=== PATIENT | female | born 1990 | race Caucasian/White ===

== ENCOUNTER 2016-12-03 19:02 | Emergency (ER) | payer MEDICAID ==
[2016-12-03 19:51] LABS: BILIRUBIN,URINE NEGATIVE (NEGATIVE); PH,URINE 6.5 PH (5.0-7.5)
[2016-12-03 19:53] LABS: HCG UR QUAL NEGATIVE; UA w/ MICROSCOPIC CHARGE YES
[2016-12-03 20:10] LABS: WBC,URINE >25 /HPF (0-5)
[2016-12-03 20:11] LABS: UR CULTURE IF IND NOT INDICATED
[2016-12-03] MEDS ORDERED: SULFAMETH/TRIMETH DS 800/160 MG TABLET PO STA (20:22)
[2016-12-03] MEDS ORDERED: PHENAZOPYRIDINE 100 MG TABLET PO STA (20:22)
[2016-12-03] MEDS ORDERED: PHENAZOPYRIDINE 100 MG TABLET PO ONE (20:31)
[2016-12-03] MEDS ORDERED: SULFAMETH/TRIMETH DS 800/160 MG TABLET PO ONE (20:32)
--- NOTE | 2016-12-03 20:38 | ED Physician Documentation ---
History of Present Illness - Stated complaint Stated Complaint: R SIDE/BACK PX - Chief complaint Chief Complaint: UTI - History obtained from History obtained from: Patient - Additonal information Additional information: Patient is a healthy young 26-year-old female presents with lower urinary symptoms for a couple days. She has frequency urgency hesitancy. She says she believes she might have a little right-sided back pain. She has had nausea without vomiting. There is no fever or chills. She has no constipation or diarrhea. Review of systems: For pertinent positive and negatives in the review of systems please see the history of present illness, otherwise all other systems have been reviewed and are negative. Dragon disclaimer: Parts of this medical record were created using voice recognition technology. Because of the inherent limitations of this system, occasional same sounding word substitutions do occur and persist despite proofreading. Please read the document for context. Review of Systems Constitutional: denies: Fever, Chills GI: reports: Nausea. 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 : None HEENT: None Psych: None Musculoskeletal: None Derm: None - Past Surgical History Past Surgical History: Yes HEENT: Myringotomy (tubes) - Present Medications Home Medications: Ambulatory Orders Medication Instructions Recorded Confirmed Waqar 10/14/15 Azithromycin [Zithromax] 250 mg PO DAILY #6 tablet 01/09/16 Fluconazole [Diflucan] 150 mg PO ONCE #1 tablet 01/09/16 Ondansetron Odt [Zofran] 4 mg TL Q6H PRN #10 tablet 01/09/16 Fluconazole 150 mg PO ONCE #1 tablet 12/03/16 Phenazopyridine HCl [Pyridium] 200 mg PO TID #9 tablet 12/03/16 Sulfamethox/Trimeth 800/160 1 each PO BID #6 tablet 12/03/16 [Bactrim Ds 800/160] - Allergies Allergies/Adverse Reactions: Allergies Allergy/AdvReac Type Severity Reaction Status Date / Time No Known Drug Allergies Allergy Verified 12/03/16 19:11 - Social History Does the pt smoke?: No Smoking Status: Never smoker Does the pt drink ETOH?: Yes Does the pt have substance abuse?: Yes Substance Use and Type: Marijuana - Immunizations Immunizations are current?: Yes - POLST Patient has POLST: No PD ED PE NORMAL - Vitals Vital signs reviewed: Yes - General General: Alert and oriented X 3, No acute distress - Neck Neck: Supple, no meningeal sign - Cardiac Cardiac: RRR - Respiratory Respiratory: No respiratory distress, Clear bilaterally - Abdomen Abdomen: Normal bowel sounds, Soft - Back Back: No CVA TTP - Derm Derm: Normal color, Warm and dry Results - Vitals Vitals: Vital Signs - 24 hr 12/03/16 19:08 Temperature 36.6 C Heart Rate 87 Respiratory 16 Rate Blood Pressure 114/62 O2 Saturation 98 Oxygen O2 Source Room air - Labs Labs: Laboratory Tests 12/03/16 19:35 Urine Color YELLOW Urine Clarity CLOUDY Urine pH 6.5 Ur Specific [place] 1.020 Urine Protein NEGATIVE Urine Glucose (UA) NEGATIVE Urine Ketones NEGATIVE Urine Occult Blood NEGATIVE Urine Nitrite NEGATIVE Urine Bilirubin NEGATIVE Urine Urobilinogen 0.2 (NORMAL) Ur Leukocyte Esterase TRACE H Urine RBC 0-5 Urine WBC >25 H Ur Epithelial Cells See Comments Below Ur Squamous Epith Cells MANY Squamous H Urine Bacteria Few Urine Mucus Marked Strands Ur Microscopic Review INDICATED Urine Culture Comments NOT INDICATED Urine HCG, Qual NEGATIVE PD MEDICAL DECISION MAKING - ED course ED course: Healthy young female with lower urinary tract infection symptoms for a couple days. She looks great on physical examination without CVA tenderness, toxicity , or abdominal tenderness. She will be placed in a short course of Bactrim. Disposition: To home Clinical impression: 1. Acute cystitis Departure - Departure Disposition: Home, Self Care Clinical Impression: Cystitis Condition: Good Instructions: ED UTI Cystitis Female Follow-Up: Anita Flanagan [facility] [Provider Group] Prescriptions: Sulfamethox/Trimeth 800/160 [Bactrim Ds 800/160] 1 each PO BID #6 tablet Fluconazole 150 mg PO ONCE #1 tablet Phenazopyridine HCl [Pyridium] 200 mg PO TID #9 tablet
[2016-12-03 20:49] VITALS: BP 118/74
== END 2016-12-03 20:51 | disposition home or self-care (01) ==
LOC: ED 19:02
DX: N30.00 Acute cystitis without hematuria (principal)
CPT/HCPCS: 81001; 81025; 99283; A9270; 81003; 87086

== ENCOUNTER 2017-01-17 05:12 | Emergency (ER) | payer MEDICAID ==
[2017-01-17] MEDS ORDERED: FAMOTIDINE 20 MG/2 ML VIAL IVP STA (05:25)
[2017-01-17] MEDS ORDERED: ONDANSETRON 4 MG/2 ML VIAL IVP STA (05:25)
[2017-01-17] MEDS ORDERED: SODIUM CHLORIDE 0.9% 1,000 ML IV ONE (05:25)
[2017-01-17] MEDS ORDERED: FAMOTIDINE 20 MG/2 ML VIAL ONE (05:32)
[2017-01-17] MEDS ORDERED: ONDANSETRON 4 MG/2 ML VIAL ONE (05:32)
--- NOTE | 2017-01-17 05:33 | ED Physician Documentation ---
PD HPI NVD - Stated complaint Stated Complaint: ABDOMINAL PAIN - Chief complaint Chief Complaint: Abd Pain - History obtained from History obtained from: Patient - History of Present Illness Timing - onset: Today Timing - details: Abrupt onset, Still present Associated symptoms: Abdominal pain. No: Fever, Chest pain, Hematemesis, Hematochezia Contributing factors: Alcohol use. No: Sick contact, Bad food Similar symptoms before: Has not had sx before Recently seen: Not recently seen - Additonal information Additional information: Patient is a 26 year old female with no significant past medical history who is presenting to the emergency department for nausea, vomiting and abdominal pain. patient states that she drank three glasses of vodka and orange juice. Patient also reports that she smoked marijuana. patient states she has had multiple episodes of vomiting and now she has stomach pains. Review of Systems Constitutional: denies: Fever, Chills Eyes: denies: Decreased vision Ears: denies: Ear pain, Drainage/discharge Nose: denies: Rhinorrhea / runny nose, Congestion Throat: denies: Dental pain / toothache Cardiac: denies: Chest pain / pressure, Palpitations Respiratory: denies: Dyspnea, Cough GI: reports: Abdominal Pain, Nausea, Vomiting. 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 : None HEENT: None Psych: None Musculoskeletal: None Derm: None - Past Surgical History Past Surgical History: Yes HEENT: Myringotomy (tubes) - Present Medications Home Medications: Ambulatory Orders Medication Instructions Recorded Confirmed Waqar 10/14/15 Azithromycin [Zithromax] 250 mg PO DAILY #6 tablet 01/09/16 Fluconazole [Diflucan] 150 mg PO ONCE #1 tablet 01/09/16 Ondansetron Odt [Zofran] 4 mg TL Q6H PRN #10 tablet 01/09/16 Fluconazole 150 mg PO ONCE #1 tablet 12/03/16 Phenazopyridine HCl [Pyridium] 200 mg PO TID #9 tablet 12/03/16 Sulfamethox/Trimeth 800/160 1 each PO BID #6 tablet 12/03/16 [Bactrim Ds 800/160] Dicyclomine [Bentyl] 10 mg PO QID #10 capsule 01/17/17 Ondansetron [Zofran Odt] 8 mg PO Q6H PRN #20 tab.rapdis 01/17/17 - Allergies Allergies/Adverse Reactions: Allergies Allergy/AdvReac Type Severity Reaction Status Date / Time No Known Drug Allergies Allergy Verified 01/17/17 05:22 - Social History Does the pt smoke?: No Smoking Status: Never smoker Does the pt drink ETOH?: Yes Does the pt have substance abuse?: Yes - Immunizations Immunizations are current?: Yes - POLST Patient has POLST: No PD ED PE NORMAL - Vitals Vital signs reviewed: Yes - General General: Alert and oriented X 3, Well developed/nourished - HEENT HEENT: Atraumatic, PERRL - Neck Neck: Supple, no meningeal sign - Cardiac Cardiac: RRR, No murmur - Respiratory Respiratory: No respiratory distress, Clear bilaterally - Abdomen Abdomen: Soft - Derm Derm: Normal color, Warm and dry, No rash - Extremities Extremities: No deformity, No edema - Neuro Neuro: Alert and oriented X 3, No motor deficit, No sensory deficit - Psych Psych: Normal mood, Normal affect PD ED PE EXPANDED - General General: Alert, Other (wretching) - HEENT HEENT: Dry mucous membranes - Abdomen Abdomen: Tender to palpation, Epigastric, Generalized/diffuse. No: Rebound, Guarding Results - Vitals Vitals: Vital Signs - 24 hr 01/17/17 05:19 Temperature 36.4 C L Heart Rate 75 Respiratory 22 Rate Blood Pressure 122/74 O2 Saturation 98 Oxygen O2 Source Room air PD MEDICAL DECISION MAKING - ED course Complexity details: reviewed old records, reviewed results, re-evaluated patient , considered differential, d/w patient ED course: Patient was seen and examined at bedside. IV access was gained and patient was treated with zofran and IV fluids. Patient continued to wretch and phenagren was added. Patient tolerated the treatment well. Patient had minimal dry heaving but no vomiting. Patient required no further inpatient work up and was stable for discharge home with her friend. Departure - Departure Disposition: 01 Home, Self Care Clinical Impression: Gastritis Condition: Good Instructions: Nausea Vomit Control Follow-Up: primary,care provider [Other] - As Needed Prescriptions: Dicyclomine [Bentyl] 10 mg PO QID #10 capsule Ondansetron [Zofran Odt] 8 mg PO Q6H PRN #20 tab.rapdis PRN Reason: Nausea / Vomiting Comments: It is difficult to say if your symptoms are secondary to the alcohol and marijuana, or from food poisoning. Either way the treatment is just symptom control. You will need to take the zofran for vomiting and stay hydrated. You can take tylenol, pepcid and bentyl as needed for pain. You should follow up with your doctor if your symptoms persist for more than a few days. You may return to the emergency department if necessary for new, worsening or uncontrollable symptoms.
[2017-01-17] MEDS ORDERED: PROMETHAZINE INJ 25 MG in SODIUM CHLORIDE 0.9% 50 ML IV STA (06:06)
[2017-01-17] MEDS ORDERED: PROMETHAZINE 25 MG/1 ML VIAL ONE (06:18)
[2017-01-17] MEDS ORDERED: ONDANSETRON ODT 4 MG Prepack 2 TL PRN (06:32)
[2017-01-17] MEDS ORDERED: ONDANSETRON ODT 4 MG Prepack 2 TL ONE (06:39)
[2017-01-17 06:49] VITALS: BP 110/61
== END 2017-01-17 06:53 | disposition home or self-care (01) ==
LOC: ED 05:12
DX: K29.70 Gastritis, unspecified, without bleeding (principal)
CPT/HCPCS: 96361; 96365; 96375; 99283; J7040

== ENCOUNTER 2017-07-17 11:59 | Emergency (ER) | payer MEDICAID ==
[2017-07-17] MEDS ORDERED: LIDOCAINE 1%-EPI 1:100000 20 ML MDV SUBQ STA (12:21)
[2017-07-17] MEDS ORDERED: TETANUS/DIPHTHERIA/PERTUSSIS 0.5 ML SYRINGE IM ONE (12:31)
--- NOTE | 2017-07-17 12:34 | ED Physician Documentation ---
PD HPI UPPER EXT INJURY - Stated complaint Stated Complaint: GLASS IN R HAND - Chief complaint Chief Complaint: Ext Problem - History obtained from History obtained from: Patient - History of Present Illness Location: Other (Ambidextrous young woman who is not up-to-date on tetanus who cut herself on a broken glass window at home just prior to arrival, pain is minimal but she wonders if there might be Retained foreign body.) Review of Systems Constitutional: reports: Reviewed and negative Ears: reports: Reviewed and negative Throat: reports: Reviewed and negative PD PAST MEDICAL HISTORY - Past Medical History Past Medical History: Yes Cardiovascular: None Respiratory: None Neuro: None, Headache/migraine Endocrine/Autoimmune: None GI: None 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 : None HEENT: None Psych: None Musculoskeletal: None Derm: None - Past Surgical History Past Surgical History: Yes HEENT: Myringotomy (tubes) - Present Medications Home Medications: Ambulatory Orders Medication Instructions Recorded Confirmed Merena 10/14/15 Azithromycin [Zithromax] 250 mg PO DAILY #6 tablet 01/09/16 Fluconazole [Diflucan] 150 mg PO ONCE #1 tablet 01/09/16 Ondansetron Odt [Zofran] 4 mg TL Q6H PRN #10 tablet 01/09/16 Fluconazole 150 mg PO ONCE #1 tablet 12/03/16 Phenazopyridine HCl [Pyridium] 200 mg PO TID #9 tablet 12/03/16 Sulfamethox/Trimeth 800/160 1 each PO BID #6 tablet 12/03/16 [Bactrim Ds 800/160] Dicyclomine [Bentyl] 10 mg PO QID #10 capsule 01/17/17 Ondansetron [Zofran Odt] 8 mg PO Q6H PRN #20 tab.rapdis 01/17/17 - Allergies Allergies/Adverse Reactions: Allergies Allergy/AdvReac Type Severity Reaction Status Date / Time No Known Drug Allergies Allergy Verified 07/17/17 12:10 - Social History Does the pt smoke?: No Smoking Status: Never smoker Does the pt drink ETOH?: Yes Does the pt have substance abuse?: Yes - Immunizations Immunizations are current?: No Immunizations: TDAP >10years/unknown - POLST Patient has POLST: No PD ED PE NORMAL - Vitals Vital signs reviewed: Yes - General General: Alert and oriented X 3, No acute distress - Neuro Neuro: Alert and oriented X 3, Normal speech - Psych Psych: Normal mood, Normal affect PD ED PE EXPANDED - Extremities VICENTE UE/Hands Visual: 1 - laceration (2 very shallow lacerations, too shallow to hide foreign body. They were just through the dermis. They were thoroughly cleansed and the larger of the 2 was closed with a Steri-Strip.) Results - Vitals Vitals: Vital Signs - 24 hr 07/17/17 12:03 Temperature 36.8 C Heart Rate 70 Respiratory 18 Rate Blood Pressure 121/73 O2 Saturation 100 Oxygen O2 Source Room air Departure - Departure Disposition: 01 Home, Self Care Clinical Impression: Laceration of right hand Qualifiers: Encounter type: initial encounter Foreign body presence: without foreign body Qualified Code(s): S61.411A - Laceration without foreign body of right hand, initial encounter Condition: Good Record reviewed to determine appropriate education?: Yes Instructions: ED Laceration Hand
[2017-07-17 12:55] VITALS: BP 122/68
== END 2017-07-17 13:00 | disposition home or self-care (01) ==
LOC: ED 11:59
DX: S61.411A Laceration without foreign body of right hand, initial encounter (principal); W25.XXXA Contact with sharp glass, initial encounter; Y92.009 Unspecified place in unspecified non-institutional (private) residence as the place of occurrence of the external cause; Z23 Encounter for immunization
CPT/HCPCS: 90471; 99283

== ENCOUNTER 2017-08-14 12:58 | Emergency (ER) | payer MEDICAID ==
--- NOTE | 2017-08-14 13:36 | ED Physician Documentation ---
History of Present Illness - Stated complaint Stated Complaint: FEMALE - Chief complaint Chief Complaint: General - History obtained from History obtained from: Patient - History of Present Illness Timing: How many days ago (2) Pain level max: 3 Pain level now: 2 Improved by: nothing Worsened by: urination - Additonal information Additional information: 26 year old female with a new sexual partner, did not use condoms and now has dysuria. No fevers. No vomiting. No discharge. no lesions. Review of Systems Ten Systems: 10 systems reviewed and negative Constitutional: denies: Fever, Chills Nose: denies: Rhinorrhea / runny nose, Congestion Throat: denies: Sore throat Respiratory: denies: Cough GI: denies: Nausea, Vomiting, Diarrhea : reports: Dysuria, Frequency, Hesitancy. 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 HEENT: None Psych: None Musculoskeletal: None Derm: None - Past Surgical History Past Surgical History: Yes HEENT: Myringotomy (tubes) - Present Medications Home Medications: Ambulatory Orders Medication Instructions Recorded Confirmed Sarahcristofer 10/14/15 Metronidazole [Flagyl] 500 mg PO BID #14 tablet 08/14/17 - Allergies Allergies/Adverse Reactions: Allergies Allergy/AdvReac Type Severity Reaction Status Date / Time No Known Drug Allergies Allergy Verified 08/14/17 13:06 - Social History Does the pt smoke?: No Smoking Status: Never smoker Does the pt drink ETOH?: Yes Does the pt have substance abuse?: Yes - Immunizations Immunizations are current?: No Immunizations: TDAP >10years/unknown - POLST Patient has POLST: No PD ED PE NORMAL - Vitals Vital signs reviewed: Yes - General General: Alert and oriented X 3, No acute distress - HEENT HEENT: Moist mucous membranes - Neck Neck: Supple, no meningeal sign - Cardiac Cardiac: RRR, Strong equal pulses - Respiratory Respiratory: No respiratory distress, Clear bilaterally - Abdomen Abdomen: Soft, Non tender, Non distended - Female Female : Marketing Ambassador present (Lucie JOHNSON), Other (normal external exam. No CMT. No adnexal masses or tenderness. Scant clear discharge. ) - Back Back: No spinal TTP - Derm Derm: Warm and dry - Neuro Neuro: Alert and oriented X 3 - Psych Psych: Normal mood, Normal affect Results - Vitals Vitals: Vital Signs - 24 hr 08/14/17 08/14/17 13:04 14:25 Temperature 37.0 C 36.6 C Heart Rate 77 72 Respiratory 16 14 Rate Blood Pressure 115/67 136/74 H O2 Saturation 99 98 Oxygen O2 Source Room air - Labs Labs: Microbiology 08/14/17 13:36 VICTOR MANUEL Preparation - Final Other - Vaginal 08/14/17 13:36 Wet Prep - Final Vaginal Laboratory Tests 08/14/17 13:35 Urine Color YELLOW Urine Clarity CLEAR Urine pH 6.5 Ur Specific [place] 1.020 Urine Protein NEGATIVE Urine Glucose (UA) NEGATIVE Urine Ketones NEGATIVE Urine Occult Blood TRACE-LYSE Urine Nitrite NEGATIVE Urine Bilirubin NEGATIVE Urine Urobilinogen 0.2 (NORMAL) Ur Leukocyte Esterase NEGATIVE Ur Microscopic Review NOT INDICATED Urine Culture Comments NOT INDICATED Urine HCG, Qual NEGATIVE PD MEDICAL DECISION MAKING - ED course Complexity details: reviewed results, re-evaluated patient, considered differential, d/w patient ED course: Patient is a 26-year-old female who presents to the emergency department with what appears to be bacterial vaginitis. Will place on Flagyl for this. She is well-appearing, nontoxic. Afebrile. No evidence of UTI. Gonorrhea and Chlamydia testing was sent. Counseled to use condoms for sexual activity. Counseled to follow-up with her doctor for further STD testing. Patient counseled regarding signs and symptoms for which I believe and urgent re- evaluation would be necessary. Patient with good understanding of and agreement to plan and is comfortable going home at this time This document was made in part using voice recognition software. While efforts are made to proofread this document, sound alike and grammatical errors may occur. Departure - Departure Disposition: 01 Home, Self Care Clinical Impression: Bacterial vaginitis Condition: Good Instructions: ED Vaginosis Bacterial Follow-Up: CECILY JUAREZ [Primary Care Provider] - Within 1 week Prescriptions: Metronidazole [Flagyl] 500 mg PO BID #14 tablet Comments: You appear to have bacterial vaginitis today on your lab testing. Take the flagyl until gone. Return if you worsen. Discharge Date/Time: 08/14/17 14:26
[2017-08-14 13:42] LABS: BILIRUBIN,URINE NEGATIVE (NEGATIVE); GLUCOSE, URINE (UA) NEGATIVE (NEGATIVE); KETONES,URINE (UA) NEGATIVE (NEGATIVE); LEUKOCYTE ESTERASE, URINE NEGATIVE (NEGATIVE); NITRITE,URINE NEGATIVE (NEGATIVE); OCCULT BLOOD,URINE TRACE-LYSE (NEGATIVE); PH,URINE 6.5 PH (5.0-7.5); PROTEIN,URINE NEGATIVE (NEGATIVE); UROBILINOGEN,URINE 0.2 (NORMAL) E.U./dL (NORMAL)
[2017-08-14 13:46] LABS: CLARITY,URINE CLEAR (CLEAR); HCG UR QUAL NEGATIVE
[2017-08-14 14:26] VITALS: BP 136/74
== END 2017-08-14 14:26 | disposition home or self-care (01) ==
LOC: ED 12:58
DX: N76.0 Acute vaginitis (principal)
CPT/HCPCS: 81001; 81003; 81025; 87086; 87210; 87220; 87491; 87591; 99283

== ENCOUNTER 2017-08-31 14:51 | Emergency (ER) | payer MEDICAID ==
[2017-08-31 15:14] VITALS: BP 135/74
[2017-08-31 15:34] LABS: BILIRUBIN,URINE NEGATIVE (NEGATIVE); GLUCOSE, URINE (UA) NEGATIVE (NEGATIVE); KETONES,URINE (UA) NEGATIVE (NEGATIVE); LEUKOCYTE ESTERASE, URINE SMALL (NEGATIVE); NITRITE,URINE POSITIVE (NEGATIVE); OCCULT BLOOD,URINE LARGE (NEGATIVE); PH,URINE 5.5 PH (5.0-7.5); PROTEIN,URINE TRACE mg/dL (NEGATIVE); UROBILINOGEN,URINE 0.2 (NORMAL) E.U./dL (NORMAL)
[2017-08-31 15:36] LABS: CLARITY,URINE CLEAR (CLEAR); HCG UR QUAL NEGATIVE
[2017-08-31 15:43] LABS: BACTERIA,URINE Moderate /HPF (None Seen); SQUAMOUS EPITHELIAL CELL,UR FEW Squamous (<= Few)
[2017-08-31 15:56] LABS: BASOPHILS # (AUTO) 0.1 10^3/uL (0.0-0.1); EOSINOPHILS # (AUTO) 0.1 10^3/uL (0.0-0.7); HGB - HEMOGLOBIN 13.1 g/dL (12.0-16.0); LYMPHOCYTES # (AUTO) 1.7 10^3/uL (1.5-3.5); LYMPHOCYTES % (AUTO) 18.1 %; MEAN CORPUSCULAR HGB CONC 32.9 g/dL (32.0-36.0); MEAN CORPUSCULAR VOLUME 91.1 fL (81.0-99.0); MEAN PLATELET VOLUME 9.4 fL (7.9-10.8); MONOCYTES # (AUTO) 0.8 10^3/uL (0.0-1.0); MONOCYTES % (AUTO) 8.4 %; NEUTROPHILS # (AUTO) 6.5 10^3/uL (1.5-6.6); NEUTROPHILS % (AUTO) 71.5 %; PLT - PLATELET COUNT 269 10^3/uL (130-450); RED BLOOD COUNT 4.36 10^6/uL (4.20-5.40); RED CELL DISTRIBUTION WIDTH 13.3 % (12.0-15.0); WHITE BLOOD COUNT 9.1 x10^3/uL (4.8-10.8)
--- NOTE | 2017-08-31 16:01 | ED Physician Documentation ---
PD HPI FEMALE - Stated complaint Stated Complaint: FEMALE - Chief complaint Chief Complaint: General - History obtained from History obtained from: Patient - History of Present Illness Timing - onset: How many days ago (3) Timing - duration: Days (3) Timing - details: Gradual onset, Still present Associated symptoms: Dysuria, Urinary frequency Contributing factors: No: Similar symptoms before: Diagnosis (UTI) Recently seen: Not recently seen - Additional information Additional information: Previously healthy 26-year-old female is developed urinary urgency frequency and dysuria as well as some low back pain over the past 3 days. She did take some Azo this is helped a little bit but does not help with the burning. She has had urinary tract infection previously and she feels that likely what she has again today. 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 HEENT: None Psych: None Musculoskeletal: None Derm: None - Past Surgical History Past Surgical History: Yes HEENT: Myringotomy (tubes) - Present Medications Home Medications: Ambulatory Orders Medication Instructions Recorded Confirmed Waqar 10/14/15 Metronidazole [Flagyl] 500 mg PO BID #14 tablet 08/14/17 Fluconazole [Diflucan] 150 mg PO ONCE #1 tablet 08/31/17 Sulfamethoxazole/Trimethoprim 1 each PO BID #10 tablet 08/31/17 [Sulfamethoxazole-Tmp Ds Tablet] - Allergies Allergies/Adverse Reactions: Allergies Allergy/AdvReac Type Severity Reaction Status Date / Time No Known Drug Allergies Allergy Verified 08/31/17 15:14 - Social History Does the pt smoke?: No Smoking Status: Never smoker Does the pt drink ETOH?: Yes Does the pt have substance abuse?: Yes - Immunizations Immunizations are current?: No Immunizations: TDAP >10years/unknown - POLST Patient has POLST: No PD ED PE NORMAL - Vitals Vital signs reviewed: Yes (normal ) - General General: Alert and oriented X 3, No acute distress, Well developed/nourished - HEENT HEENT: Atraumatic, PERRL, EOMI - Respiratory Respiratory: No respiratory distress - Back Back: No CVA TTP, No spinal TTP, Other (tenderness to the lower lumbar paraspinous muscles bilateraly ) - Derm Derm: Normal color, Warm and dry, No rash - Extremities Extremities: No deformity, No edema - Neuro Neuro: No motor deficit, No sensory deficit Eye Opening: Spontaneous Motor: Obeys Commands Verbal: Oriented GCS Score: 15 - Psych Psych: Normal mood, Normal affect Results - Vitals Vitals: Vital Signs - 24 hr 08/31/17 15:11 Temperature 37.4 C Heart Rate 80 Respiratory 17 Rate Blood Pressure 135/74 H O2 Saturation 100 Oxygen O2 Source Room air - Labs Labs: Laboratory Tests 08/31/17 08/31/17 15:28 15:28 Urine Color YELLOW Urine Clarity CLEAR Urine pH 5.5 Ur Specific [place] 1.010 1.010 Urine Protein TRACE Urine Glucose (UA) NEGATIVE Urine Ketones NEGATIVE Urine Occult Blood LARGE H Urine Nitrite POSITIVE H Urine Bilirubin NEGATIVE Urine Urobilinogen 0.2 (NORMAL) Ur Leukocyte Esterase SMALL H Urine RBC 6-10 H Urine WBC >25 H Ur Squamous Epith Cells FEW Squamous Urine Bacteria Moderate H Ur Microscopic Review INDICATED Urine Culture Comments INDICATED Urine HCG, Qual NEGATIVE PD MEDICAL DECISION MAKING - ED course Complexity details: considered differential, d/w patient ED course: 26 y/o female with a UTI Departure - Departure Disposition: 01 Home, Self Care Clinical Impression: Urinary tract infection Qualifiers: Urinary tract infection type: acute cystitis Hematuria presence: with hematuria Qualified Code(s): N30.01 - Acute cystitis with hematuria Condition: Stable Instructions: ED UTI Cystitis Female Follow-Up: CECILY JUAREZ [Primary Care Provider] - Prescriptions: Fluconazole [Diflucan] 150 mg PO ONCE #1 tablet Sulfamethoxazole/Trimethoprim [Sulfamethoxazole-Tmp Ds Tablet] 1 each PO BID # 10 tablet
[2017-08-31 16:10] LABS: ALBUMIN 4.8 g/dL (3.2-5.5); ALBUMIN/GLOBULIN RATIO 1.6 (1.0-2.2); BILIRUBIN,TOTAL 0.6 mg/dL (0.2-1.0); CALCIUM 9.3 mg/dL (8.5-10.3); CREATININE 0.5 mg/dL (0.4-1.0); TOTAL PROTEIN 7.8 g/dL (6.7-8.2)
== END 2017-08-31 16:07 | disposition home or self-care (01) ==
LOC: ED 14:51
DX: N30.01 Acute cystitis with hematuria (principal)
CPT/HCPCS: 36415; 80053; 81001; 81003; 81025; 83690; 85025; 87077; 87086; 87181; 99283

== ENCOUNTER 2017-11-14 14:03 | Emergency (ER) | payer MEDICAID ==
--- NOTE | 2017-11-14 14:51 | ED Physician Documentation ---
History of Present Illness - Stated complaint Stated Complaint: RT SIDE EAR DISCOMFORT - Chief complaint Chief Complaint: Heent - History obtained from History obtained from: Patient - History of Present Illness Timing: Yesterday Pain level max: 3 Pain level now: 3 Improved by: nothing Worsened by: nothing - Additonal information Additional information: Patient is a 27-year-old female who presents to the emergency department with right ear pain for the past several days. She states that yesterday there was whitish drainage from the ear and she is not hearing as well out of the right side. Has had recurrent ear infections on that side in the past. No fevers. No rhinorrhea or congestion. No coughing. No sore throat. Denies any possibility of . 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 - Past Surgical History Past Surgical History: Yes HEENT: Myringotomy (tubes) - Present Medications Home Medications: Ambulatory Orders Medication Instructions Recorded Confirmed Waqar 10/14/15 Metronidazole [Flagyl] 500 mg PO BID #14 tablet 08/14/17 Fluconazole [Diflucan] 150 mg PO ONCE #1 tablet 08/31/17 Sulfamethoxazole/Trimethoprim 1 each PO BID #10 tablet 08/31/17 [Sulfamethoxazole-Tmp Ds Tablet] Azithromycin [Zithromax] 0 mg PO DAILY #6 tablet 11/14/17 Fluconazole [Diflucan] 150 mg PO ONCE #1 tablet 11/14/17 - Allergies Allergies/Adverse Reactions: Allergies Allergy/AdvReac Type Severity Reaction Status Date / Time No Known Drug Allergies Allergy Verified 11/14/17 14:27 - Social History Does the pt smoke?: No Smoking Status: Never smoker Does the pt drink ETOH?: Yes Does the pt have substance abuse?: Yes - Immunizations Immunizations are current?: No Immunizations: TDAP >10years/unknown - POLST Patient has POLST: No PD ED PE NORMAL - Vitals Vital signs reviewed: Yes - General General: Alert and oriented X 3, No acute distress - HEENT HEENT: Moist mucous membranes, Pharynx benign, Other (L ear and TM normal. R TM Is erythematous, bulging with fluid present behind the eardrum. Unable to visualize the base of the eardrum fully. There could be a perforation behind the wax.) - Neck Neck: Supple, no meningeal sign - Derm Derm: Warm and dry - Neuro Neuro: Alert and oriented X 3 Results - Vitals Vitals: Vital Signs - 24 hr 11/14/17 11/14/17 14:21 15:03 Temperature 37.1 C 37.4 C Heart Rate 76 68 Respiratory 18 16 Rate Blood Pressure 125/73 122/72 O2 Saturation 99 99 Oxygen O2 Source Room air PD MEDICAL DECISION MAKING - ED course Complexity details: considered differential, d/w patient ED course: Patient is a 27-year-old female with a right-sided acute otitis media. Will place on antibiotics for this. She is well-appearing, nontoxic. Afebrile. Discussed with the patient that there could be a perforation on the lower portion of the ear that we are unable to fully visualize because of the wax in her ear. Will have her reexamined after the infection is cleared. Patient counseled regarding signs and symptoms for which I believe and urgent re- evaluation would be necessary. Patient with good understanding of and agreement to plan and is comfortable going home at this time This document was made in part using voice recognition software. While efforts are made to proofread this document, sound alike and grammatical errors may occur. - Sepsis Event Vital Signs: Vital Signs - 24 hr 11/14/17 11/14/17 14:21 15:03 Temperature 37.1 C 37.4 C Heart Rate 76 68 Respiratory 18 16 Rate Blood Pressure 125/73 122/72 O2 Saturation 99 99 Oxygen O2 Source Room air Departure - Departure Disposition: 01 Home, Self Care Clinical Impression: Otitis media Qualifiers: Otitis media type: suppurative Chronicity: acute Laterality: right Recurrence: not specified as recurrent Spontaneous tympanic membrane rupture: without spontaneous rupture Qualified Code(s): H66.001 - Acute suppurative otitis media without spontaneous rupture of ear drum, right ear Instructions: ED Otitis Media Acute Adult Follow-Up: CECILY JUAREZ [Primary Care Provider] - Within 1 week Prescriptions: Azithromycin [Zithromax] 0 mg PO DAILY #6 tablet Fluconazole [Diflucan] 150 mg PO ONCE #1 tablet Comments: Take all antibiotics until gone. Return if you worsen. Discharge Date/Time: 11/14/17 15:03
[2017-11-14 15:04] VITALS: BP 122/72
== END 2017-11-14 15:03 | disposition home or self-care (01) ==
LOC: ED 14:03
DX: H66.001 Acute suppurative otitis media without spontaneous rupture of ear drum, right ear (principal)
CPT/HCPCS: 99283

== ENCOUNTER 2017-12-05 13:05 | Emergency (ER) | payer MEDICAID ==
[2017-12-05 13:10] VITALS: BP 113/69
[2017-12-05] MEDS ORDERED: DEXAMETHASONE 10 MG/ML VIAL PO STA (13:23)
--- NOTE | 2017-12-05 13:26 | ED Physician Documentation ---
PD HPI URI - Stated complaint Stated Complaint: COUGH/VOMITING/DIARRHEA - Chief complaint Chief Complaint: Abd Pain - History obtained from History obtained from: Patient - History of Present Illness Timing - onset: How many days ago (4) Timing duration: Days (4) Timing details: Gradual onset, Still present Associated symptoms: Nasal congestion, Rhinorrhea, Sinus pain, Sore throat, Dry cough, Dyspnea Contributing factors: Sick contact Improves by: Rest, Medication Worsened by: Activity Similar symptoms before: Diagnosis (bronchitis) Recently seen: Emergency Dept - Additional information Additional information: 27-year-old female who has recently been treated for otitis media with azithromycin has developed a cough and congestion with wheezing. She feels that the prior treatment seem to work only part way. This was about 3 weeks ago. She has had a inhaler previously but has not used one in more than a year. 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 : None HEENT: Other Psych: None Musculoskeletal: None Derm: None, Eczema, Psoriasis Other Past Medical History: ears- vertigo, prone to ear infections, ringing - Past Surgical History Past Surgical History: Yes HEENT: Myringotomy (tubes) - Present Medications Home Medications: Ambulatory Orders Medication Instructions Recorded Confirmed Albuterol Sulf [Ventolin Hfa 1 - 2 puffs INH Q4HR PRN #1 inhaler 12/05/17 Inhaler] Amox/Clav 875/125 [Augmentin] 1 each PO Q12H #20 tablet 12/05/17 Levonorgestrel [Mirena] 1 each IY 12/05/17 - Allergies Allergies/Adverse Reactions: Allergies Allergy/AdvReac Type Severity Reaction Status Date / Time No Known Drug Allergies Allergy Verified 12/05/17 13:10 - Social History Does the pt smoke?: No Smoking Status: Never smoker Does the pt drink ETOH?: Yes Does the pt have substance abuse?: Yes - Immunizations Immunizations are current?: No Immunizations: TDAP >10years/unknown - POLST Patient has POLST: No PD ED PE NORMAL - Vitals Vital signs reviewed: Yes (normal ) - General General: Alert and oriented X 3, No acute distress, Well developed/nourished - HEENT HEENT: Atraumatic, PERRL, EOMI, Other (both TM's are inflamed with indistinct landmarks. ) - Neck Neck: Supple, no meningeal sign, No bony TTP - Cardiac Cardiac: RRR, No murmur - Respiratory Respiratory: No respiratory distress, Other (diminished breath sounds with focal wheeze in the right upper lung. 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, No motor deficit, No sensory deficit, Normal speech Eye Opening: Spontaneous Motor: Obeys Commands Verbal: Oriented GCS Score: 15 - Psych Psych: Normal mood, Normal affect Results - Vitals Vitals: Vital Signs - 24 hr 12/05/17 12/05/17 13:07 13:52 Temperature 36.9 C 36.9 C Heart Rate 90 90 Respiratory 18 18 Rate Blood Pressure 113/69 113/69 O2 Saturation 100 100 Oxygen O2 Source Room air PD MEDICAL DECISION MAKING - ED course Complexity details: reviewed old records, considered differential, d/w patient ED course: 27-year-old female with cough congestion and wheezing has wheezing on exam she has otitis on exam. She is administered dexamethasone 10 mg orally she has used an inhaler previously we will prescribe another inhaler and we will change her antibiotic to Augmentin. - Sepsis Event Vital Signs: Vital Signs - 24 hr 12/05/17 12/05/17 13:07 13:52 Temperature 36.9 C 36.9 C Heart Rate 90 90 Respiratory 18 18 Rate Blood Pressure 113/69 113/69 O2 Saturation 100 100 Oxygen O2 Source Room air Departure - Departure Disposition: 01 Home, Self Care Clinical Impression: Otitis media Qualifiers: Otitis media type: suppurative Chronicity: acute Laterality: bilateral Recurrence: not specified as recurrent Spontaneous tympanic membrane rupture: without spontaneous rupture Qualified Code(s): H66.003 - Acute suppurative otitis media without spontaneous rupture of ear drum, bilateral Asthmatic bronchitis Qualifiers: Asthma severity: mild Asthma persistence: intermittent Asthma complication type : with acute exacerbation Qualified Code(s): J45.21 - Mild intermittent asthma with (acute) exacerbation Condition: Stable Instructions: ED Bronchitis Asthmatic, ED Otitis Media Acute Adult Follow-Up: CECILY JUAREZ [Primary Care Provider] - Prescriptions: Albuterol Sulf [Ventolin Hfa Inhaler] 1 - 2 puffs INH Q4HR PRN #1 inhaler PRN Reason: Shortness Of Air/Wheezing Amox/Clav 875/125 [Augmentin] 1 each PO Q12H #20 tablet Forms: Activity restrictions Discharge Date/Time: 12/05/17 13:52
== END 2017-12-05 13:52 | disposition home or self-care (01) ==
LOC: ED 13:05
DX: H66.003 Acute suppurative otitis media without spontaneous rupture of ear drum, bilateral (principal); J45.21 Mild intermittent asthma with (acute) exacerbation
CPT/HCPCS: 99283

== ENCOUNTER 2018-03-02 20:01 | Emergency (ER) | payer MEDICAID ==
[2018-03-02 20:09] VITALS: BP 118/52
== END 2018-03-02 21:08 | disposition left against medical advice (07) ==
LOC: ED 20:01
DX: Z53.21 Procedure and treatment not carried out due to patient leaving prior to being seen by health care provider (principal)

== ENCOUNTER 2018-05-06 21:44 | Outpatient (CLI) | payer MEDICAID | END 2018-05-06 21:45 | disposition home or self-care (01) | LOC: DI 21:44 | PROVIDERS: ATTEND Internal Medicine | DX: N63.20 Unspecified lump in the left breast, unspecified quadrant (principal); Z53.9 Procedure and treatment not carried out, unspecified reason ==

== ENCOUNTER 2018-05-20 17:19 | Emergency (ER) | payer MEDICAID ==
[2018-05-20] MEDS ORDERED: SODIUM CHLORIDE 0.9% 1,000 ML IV ONE ×2 (17:37)
[2018-05-20] MEDS ORDERED: ONDANSETRON 4 MG/2 ML VIAL IVP STA (17:37)
--- NOTE | 2018-05-20 17:41 | ED Physician Documentation ---
PD HPI NVD - Stated complaint Stated Complaint: DRY HEAVING - Chief complaint Chief Complaint: Abd Pain - History obtained from History obtained from: Patient - History of Present Illness Timing - onset: Today Timing - duration: Days (1) Timing - details: Abrupt onset Pain level max: 7 Pain level now: 5 Associated symptoms: Abdominal pain (crampy, diffuse). No: Fever, Chest pain, Hematemesis, Melena, Hematochezia, Dizzy, Near syncope / syncope Contributing factors: No: Sick contact, Bad food, Travel, Recent antibiotics, Alcohol use, Anticoagulated, Diabetes Improved by: Vomiting Worsened by: Eating Similar symptoms before: Has not had sx before Recently seen: Not recently seen - Additonal information Additional information: vomiting and diarrhea since this am at 11a. no fevers. no recent abx. no recent travel. 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 HEENT: Other Psych: None Musculoskeletal: None Derm: None, Eczema, Psoriasis - Past Surgical History Past Surgical History: Yes HEENT: Myringotomy (tubes) - Present Medications Home Medications: Ambulatory Orders Medication Instructions Recorded Confirmed Levonorgestrel [Mirena] 1 each IY 12/05/17 Ondansetron Odt [Zofran] 4 mg TL Q6H PRN #10 tablet 05/20/18 - Allergies Allergies/Adverse Reactions: Allergies Allergy/AdvReac Type Severity Reaction Status Date / Time No Known Drug Allergies Allergy Verified 05/20/18 17:32 - Social History Does the pt smoke?: No Smoking Status: Never smoker Does the pt drink ETOH?: Yes Does the pt have substance abuse?: Yes - Immunizations Immunizations are current?: No Immunizations: TDAP >10years/unknown - POLST Patient has POLST: No PD ED PE NORMAL - Vitals Vital signs reviewed: Yes - General General: Alert and oriented X 3, No acute distress - HEENT HEENT: Moist mucous membranes - Neck Neck: Supple, no meningeal sign - Cardiac Cardiac: RRR, Strong equal pulses - Respiratory Respiratory: No respiratory distress, Clear bilaterally - Abdomen Abdomen: Soft, Non distended, Other (Mild diffuse tenderness to palpation without peritoneal signs.) - Back Back: No CVA TTP - Derm Derm: Warm and dry - Extremities Extremities: No edema - Neuro Neuro: Alert and oriented X 3 - Psych Psych: Normal mood, Normal affect Results - Vitals Vitals: Vital Signs - 24 hr 05/20/18 17:30 Temperature 36.7 C Heart Rate 96 Respiratory 20 Rate Blood Pressure 109/69 O2 Saturation 100 Oxygen O2 Source Room air - Labs Labs: Laboratory Tests 05/20/18 05/20/18 17:50 17:50 WBC 8.8 RBC 4.21 Hgb 13.0 Hct 38.3 MCV 90.9 MCH 30.8 MCHC 33.9 RDW 12.9 Plt Count 206 MPV 9.5 Neut # (Auto) 7.9 H Lymph # (Auto) 0.[address] [place] # (Auto) 0.6 Eos # (Auto) 0.0 Baso # (Auto) 0.0 Absolute Nucleated RBC 0.00 Nucleated RBC % 0.0 Sodium 134 L Potassium 3.1 L Chloride 103 Carbon Dioxide 19 L Anion Gap 12.0 BUN 10 Creatinine 0.7 Estimated GFR (MDRD) 102 Glucose 138 H Calcium 9.3 Total Bilirubin 0.7 AST 22 ALT 13 Alkaline Phosphatase 59 Total Protein 7.6 Albumin 4.7 Globulin 2.9 Albumin/Globulin Ratio 1.6 Lipase 20 L PD MEDICAL DECISION MAKING - ED course Complexity details: reviewed results, re-evaluated patient, considered differential, d/w patient ED course: 27-year-old female presents to the emergency room with what appears to be a viral gastroenteritis. Feels better after IV fluids and Zofran. Tolerating p.o. without difficulty. Potassium replaced. We will continue supportive care and follow-up with her doctor. Abdomen is soft, nontender nondistended on serial exam. Patient counseled regarding signs and symptoms for which I believe and urgent re-evaluation would be necessary. Patient with good understanding of and agreement to plan and is comfortable going home at this time This document was made in part using voice recognition software. While efforts are made to proofread this document, sound alike and grammatical errors may occur. Departure - Departure Disposition: 01 Home, Self Care Clinical Impression: Gastroenteritis Condition: Good Instructions: ED Gastroenteritis Viral Follow-Up: your,doctor in 3 days if not better [Other] Prescriptions: Ondansetron Odt [Zofran] 4 mg TL Q6H PRN #10 tablet PRN Reason: Nausea / Vomiting Comments: Drink plenty of fluids and rest. Return if you worsen. Forms: Activity restrictions
[2018-05-20 18:02] LABS: BASOPHILS % (AUTO) 0.6 %; EOSINOPHILS % (AUTO) 0.1 %; LYMPHOCYTES # (AUTO) 0.2 10^3/uL (1.5-3.5); LYMPHOCYTES % (AUTO) 2.3 %; MEAN CORPUSCULAR HEMOGLOBIN 30.8 pg (27.0-31.0); MEAN CORPUSCULAR HGB CONC 33.9 g/dL (32.0-36.0); MEAN CORPUSCULAR VOLUME 90.9 fL (81.0-99.0); MEAN PLATELET VOLUME 9.5 fL (7.9-10.8); MONOCYTES # (AUTO) 0.6 10^3/uL (0.0-1.0); MONOCYTES % (AUTO) 7.1 %; NEUTROPHILS # (AUTO) 7.9 10^3/uL (1.5-6.6); NEUTROPHILS % (AUTO) 89.9 %; PLT - PLATELET COUNT 206 10^3/uL (130-450); RED BLOOD COUNT 4.21 10^6/uL (4.20-5.40); RED CELL DISTRIBUTION WIDTH 12.9 % (12.0-15.0); WHITE BLOOD COUNT 8.8 x10^3/uL (4.8-10.8)
[2018-05-20 18:15] LABS: ALBUMIN 4.7 g/dL (3.2-5.5); ALBUMIN/GLOBULIN RATIO 1.6 (1.0-2.2); BILIRUBIN,TOTAL 0.7 mg/dL (0.2-1.0); CALCIUM 9.3 mg/dL (8.5-10.3); CREATININE 0.7 mg/dL (0.4-1.0); TOTAL PROTEIN 7.6 g/dL (6.7-8.2)
[2018-05-20] MEDS ORDERED: POTASSIUM BICARB 25 MEQ TABLET PO STA (18:31)
[2018-05-20 19:34] VITALS: BP 120/57
== END 2018-05-20 19:34 | disposition home or self-care (01) ==
LOC: ED 17:19
DX: K52.9 Noninfective gastroenteritis and colitis, unspecified (principal)
CPT/HCPCS: 36415; 80053; 83690; 85025; 96361; 96374; 99283; A9270

== ENCOUNTER 2018-06-09 16:41 | Outpatient (CLI) | payer MEDICAID ==
--- NOTE | 2018-06-10 00:17 | Ultrasound Report ---
Reason: MICROSCOPIC HEMATURIA Procedure Date: 06/09/2018 Accession Number: [id number] / [id number] Procedure: US - Retroperitoneal CPT Code: FULL RESULT: EXAM: RENAL ULTRASOUND EXAM DATE: 06/09/2018 05:30 PM. CLINICAL HISTORY: MICROSCOPIC HEMATURIA. COMPARISON: None. TECHNIQUE: Real-time scanning was performed with static images obtained. FINDINGS: Right Kidney: 12.4 x 6.2 x 5.8 cm. No shadowing stones, contour-deforming masses, or hydronephrosis. Left Kidney: 12.4 x 4.5 x 5.8 cm. No shadowing stones, contour-deforming masses, or hydronephrosis. Bladder: Bilateral jets seen. The prevoid bladder volume was 219 cc. The postvoid bladder volume was 0.4 cc. IMPRESSION: No acute sonographic abnormalities. RADIA
== END 2018-06-09 16:42 | disposition home or self-care (01) ==
LOC: DI 16:41
PROVIDERS: ATTEND Internal Medicine
DX: R31.29 Other microscopic hematuria (principal)
CPT/HCPCS: 76770

== ENCOUNTER 2018-06-22 10:51 | Outpatient (CLI) | payer MEDICAID ==
--- NOTE | 2018-06-22 11:55 | Ultrasound Report ---
Reason: UNSPECIFIED LUMP IN THE LEFT BREAST, UNSPECIFIED Q Procedure Date: 06/22/2018 Accession Number: [id number] / [id number] Procedure: US - Breast Unilateral Limited CPT Code: FULL RESULT: EXAM: Breast Unilateral Limited DATE: 06/22/2018 11:45 AM CLINICAL HISTORY: UNSPECIFIED LUMP IN THE LEFT BREAST, UNSPECIFIED Q COMPARISON: None. TECHNIQUE: Targeted ultrasound was performed of the left breast in the area of clinical concern at 3 o'clock with examination of the entire quadrant surrounding the previously palpable lump. Color Doppler was employed as appropriate. FINDINGS: Normal-appearing breast tissue is seen in the 3:00 position. No abnormal collection masses or architectural distortion is identified. IMPRESSION: Negative examination RECOMMENDATION: Recommend routine annual Screening mammography starting at the age of 40 unless otherwise clinically indicated. BIRADS CATEGORY 1: Negative RADIA
== END 2018-06-22 10:52 | disposition home or self-care (01) ==
LOC: DI 10:51
PROVIDERS: ATTEND Internal Medicine
DX: N63.20 Unspecified lump in the left breast, unspecified quadrant (principal)
CPT/HCPCS: 76642

== ENCOUNTER 2019-05-22 17:22 | Emergency (ER) | payer MEDICAID ==
[2019-05-22] MEDS ORDERED: DICYCLOMINE 10 MG CAPSULE PO STA (17:40)
[2019-05-22] MEDS ORDERED: SODIUM CHLORIDE 0.9% 1,000 ML IV ONE (17:40)
[2019-05-22] MEDS ORDERED: KETOROLAC 30 MG/ML VIAL IVP STA (17:40)
[2019-05-22] MEDS ORDERED: ONDANSETRON 4 MG/2 ML VIAL IVP STA (17:40)
[2019-05-22] MEDS ORDERED: LOPERAMIDE 2 MG CAPSULE PO STA (17:40)
--- NOTE | 2019-05-22 17:42 | ED Physician Documentation ---
History of Present Illness - Stated complaint Stated Complaint: N/V/D,F ,BACK PX - Chief complaint Chief Complaint: General - History obtained from History obtained from: Patient - History of Present Illness Timing: Today (She became acutely sick at midnight last night with vomiting and diarrhea as well as mid back pain. No recent travel. No fevers but she has had chills.) Review of Systems Constitutional: reports: Chills, Sweats. 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 HEENT: Other Psych: None Musculoskeletal: None Derm: Eczema, Psoriasis - Past Surgical History Past Surgical History: Yes HEENT: Myringotomy (tubes) - Present Medications Home Medications: Ambulatory Orders Medication Instructions Recorded Confirmed Levonorgestrel [Mirena] 1 each IY 12/05/17 Ondansetron Odt [Zofran] 4 mg TL Q6H PRN #10 tablet 05/20/18 Dicyclomine [Bentyl] 20 mg PO QID PRN #15 capsule 05/22/19 Fluconazole [Diflucan] 150 mg PO ONCE PRN #1 tablet 05/22/19 Loperamide [Imodium] 2 mg PO QID PRN #10 capsule 05/22/19 Nitrofurantoin Monohyd/M-Cryst 100 mg PO BID #10 capsule 05/22/19 [Macrobid 100 mg Capsule] Ondansetron Odt [Zofran] 4 mg TL Q6H PRN #10 tablet 05/22/19 - Allergies Allergies/Adverse Reactions: Allergies Allergy/AdvReac Type Severity Reaction Status Date / Time No Known Drug Allergies Allergy Verified 05/22/19 17:33 - Social History Does the pt smoke?: No Smoking Status: Never smoker Does the pt drink ETOH?: Yes Does the pt have substance abuse?: Yes Substance Use and Type: Marijuana - Immunizations Immunizations are current?: No Immunizations: TDAP >10years/unknown - POLST Patient has POLST: No PD ED PE NORMAL - Vitals Vital signs reviewed: Yes - General General: Alert and oriented X 3, No acute distress - HEENT HEENT: PERRL, EOMI, Other (Dry mucous membranes) - Neck Neck: Supple, no meningeal sign, No bony TTP - Cardiac Cardiac: RRR, No murmur - Respiratory Respiratory: No respiratory distress, Clear bilaterally - Abdomen Abdomen: Normal bowel sounds, Soft, Non tender - Back Back: No CVA TTP, No spinal TTP - Derm Derm: Normal color, Warm and dry - Extremities Extremities: No edema, No calf tenderness / cord - Neuro Neuro: Alert and oriented X 3, Normal speech Results - Vitals Vitals: Vital Signs - 24 hr 05/22/19 17:33 Temperature 37.1 C Heart Rate 90 Respiratory 16 Rate Blood Pressure 105/61 O2 Saturation 99 Oxygen O2 Source Room air - Labs Labs: Laboratory Tests 05/22/19 05/22/19 05/22/19 18:00 18:00 18:00 Sodium 137 Potassium 3.8 Chloride 100 L Carbon Dioxide 23 Anion Gap 14.0 H BUN 16 Creatinine 0.7 Estimated GFR (MDRD) 101 Glucose 128 H Calcium 9.1 Total Bilirubin 1.3 H AST 28 ALT 18 Alkaline Phosphatase 57 Total Protein 8.5 H Albumin 4.9 Globulin 3.6 Albumin/Globulin Ratio 1.4 Lipase 18 L Serum HCG, Qual NEGATIVE Urine Color YELLOW Urine Clarity CLEAR Urine pH 6.0 Ur Specific [place] >=1.030 H Urine Protein TRACE Urine Glucose (UA) NEGATIVE Urine Ketones NEGATIVE Urine Occult Blood MODERATE H Urine Nitrite NEGATIVE Urine Bilirubin NEGATIVE Urine Urobilinogen 0.2 (NORMAL) Ur Leukocyte Esterase NEGATIVE Urine RBC 6-10 H Urine WBC 4-5 Ur Squamous Epith Cells FEW Squamous Urine Bacteria Moderate H Urine Mucus Marked Strands Ur Microscopic Review INDICATED Urine Culture Comments INDICATED 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 After IV fluids, Toradol Bentyl and Zofran she was feeling much better and passed an oral challenge. Remained nontender to abdominal examination on repeat evaluation. Departure - Departure Disposition: 01 Home, Self Care Clinical Impression: Gastroenteritis Acute cystitis Qualifiers: Hematuria presence: without hematuria Qualified Code(s): N30.00 - Acute cystitis without hematuria Condition: Good Instructions: ED Gastroenteritis Viral Prescriptions: Dicyclomine [Bentyl] 20 mg PO QID PRN #15 capsule PRN Reason: Abdominal Pain Fluconazole [Diflucan] 150 mg PO ONCE PRN #1 tablet PRN Reason: yeast infection Loperamide [Imodium] 2 mg PO QID PRN #10 capsule PRN Reason: Diarrhea Nitrofurantoin Monohyd/M-Cryst [Macrobid 100 mg Capsule] 100 mg PO BID #10 capsule Ondansetron Odt [Zofran] 4 mg TL Q6H PRN #10 tablet PRN Reason: Nausea / Vomiting Comments: Return in 12 hours if not better, anytime for new or worsening symptoms.
[2019-05-22 18:16] LABS: BILIRUBIN,URINE NEGATIVE (NEGATIVE); GLUCOSE, URINE (UA) NEGATIVE (NEGATIVE); KETONES,URINE (UA) NEGATIVE (NEGATIVE); LEUKOCYTE ESTERASE, URINE NEGATIVE (NEGATIVE); NITRITE,URINE NEGATIVE (NEGATIVE); OCCULT BLOOD,URINE MODERATE (NEGATIVE); PROTEIN,URINE TRACE mg/dL (NEGATIVE); UROBILINOGEN,URINE 0.2 (NORMAL) E.U./dL (NORMAL)
[2019-05-22 18:21] LABS: CLARITY,URINE CLEAR (CLEAR)
[2019-05-22 18:24] LABS: ALBUMIN 4.9 g/dL (3.2-5.5); ALBUMIN/GLOBULIN RATIO 1.4 (1.0-2.2); BILIRUBIN,TOTAL 1.3 mg/dL (0.2-1.0); CALCIUM 9.1 mg/dL (8.5-10.3); CREATININE 0.7 mg/dL (0.4-1.0); TOTAL PROTEIN 8.5 g/dL (6.7-8.2)
[2019-05-22 18:39] LABS: BACTERIA,URINE Moderate /HPF (None Seen); MUCUS,URINE Marked Strands; SQUAMOUS EPITHELIAL CELL,UR FEW Squamous (<= Few)
[2019-05-22] MEDS ORDERED: NITROFURANTOIN MACRO 100 MG CAPSULE PO STA (18:50)
[2019-05-22] MEDS ORDERED: ONDANSETRON ODT 4 MG Prepack 2 TL STA (18:50)
[2019-05-22 18:54] LABS: HCG,QUALITATIVE BLOOD NEGATIVE
[2019-05-22 19:16] VITALS: BP 103/58
== END 2019-05-22 19:17 | disposition home or self-care (01) ==
LOC: ED 17:22
DX: K52.9 Noninfective gastroenteritis and colitis, unspecified (principal); N30.00 Acute cystitis without hematuria
CPT/HCPCS: 36415; 80053; 81001; 81025; 83690; 84703; 87086; 96374; 96375; 99283; A9270; 81003

== ENCOUNTER 2019-05-31 21:06 | Emergency (ER) | payer MEDICAID ==
[2019-05-31 21:19] VITALS: BP 99/73
== END 2019-05-31 23:00 | disposition left against medical advice (07) ==
LOC: ED 21:06
DX: Z53.21 Procedure and treatment not carried out due to patient leaving prior to being seen by health care provider (principal)

== ENCOUNTER 2019-09-27 19:44 | Emergency (ER) | payer MEDICAID ==
[2019-09-27 20:01] VITALS: BP 128/73
--- NOTE | 2019-09-27 20:11 | ED Physician Documentation ---
History of Present Illness - Stated complaint Stated Complaint: DOG BITE RT LEG - Chief complaint Chief Complaint: General - History obtained from History obtained from: Patient - History of Present Illness Timing: Prior to arrival, How many hours ago (1) - Additonal information Additional information: 28-year-old female presents to the emergency department with dog bite scratch wound to the right lower leg. Reports that she was at when [facility] when a boxer mix dog bit her. She denies that the dog was sick acting. She has a superficial puncture wound on the anterior side of the right calf. She has 2 other associated scratch wounds on the posterior calf. Patient has a normal gait and appears in no distress. Her last tetanus was in 2018. Review of Systems Constitutional: denies: Fever, Chills Cardiac: denies: Chest pain / pressure, Palpitations Respiratory: denies: Cough GI: denies: Abdominal Pain : denies: Dysuria Skin: reports: Lesions (superficial puncture wound right anterior calf. 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 HEENT: Other Psych: None Musculoskeletal: None Derm: Eczema, Psoriasis - Past Surgical History Past Surgical History: Yes HEENT: Myringotomy (tubes) - Present Medications Home Medications: Ambulatory Orders Medication Instructions Recorded Confirmed Levonorgestrel [Mirena] 1 each IY 12/05/17 Ondansetron Odt [Zofran] 4 mg TL Q6H PRN #10 tablet 05/20/18 Dicyclomine [Bentyl] 20 mg PO QID PRN #15 capsule 05/22/19 Fluconazole [Diflucan] 150 mg PO ONCE PRN #1 tablet 05/22/19 Loperamide [Imodium] 2 mg PO QID PRN #10 capsule 05/22/19 Nitrofurantoin Monohyd/M-Cryst 100 mg PO BID #10 capsule 05/22/19 [Macrobid 100 mg Capsule] Ondansetron Odt [Zofran] 4 mg TL Q6H PRN #10 tablet 05/22/19 Amox/Clav 875/125 [Augmentin] 1 each PO Q12H 7 Days #14 tablet 09/27/19 - Allergies Allergies/Adverse Reactions: Allergies Allergy/AdvReac Type Severity Reaction Status Date / Time No Known Drug Allergies Allergy Verified 05/31/19 21:15 - Social History Does the pt smoke?: No Smoking Status: Never smoker Does the pt drink ETOH?: Yes Does the pt have substance abuse?: Yes - Immunizations Immunizations are current?: No Immunizations: TDAP >10years/unknown - POLST Patient has POLST: No PD ED PE NORMAL - General General: Alert and oriented X 3, No acute distress, Well developed/nourished - HEENT HEENT: Atraumatic, Ears normal - Neck Neck: Supple, no meningeal sign, No bony TTP, No adenopathy - Cardiac Cardiac: RRR, No murmur - Respiratory Respiratory: No respiratory distress - Derm Derm: Normal color, Warm and dry, Other (Isolated superficial puncture wound right anterior calf. 2 associated superficial 1 cm abrasions right posterior calf. No surrounding erythema.) - Extremities Extremities: No deformity, No tenderness to palpate, Normal ROM s pain, No edema - Neuro Neuro: Alert and oriented X 3, staff development nurse 2-12 intact, No motor deficit, No sensory deficit Results - Vitals Vitals: Vital Signs - 24 hr 09/27/19 19:57 Temperature 37.1 C Heart Rate 75 Respiratory 16 Rate Blood Pressure 128/73 O2 Saturation 100 Oxygen O2 Source Room air PD MEDICAL DECISION MAKING - ED course Complexity details: d/w patient ED course: 28-year-old female presents to the emergency department with a superficial puncture wound sustained from [place] dog [place] - Patient's tetanus is up to date in June 2017. There is no documented cases of rabies and domesticated animals on [facility]. Therefore will defer any rabies vaccination or prophylaxis. - Superficial bite wound was copiously irrigated with 60 mL of sterile saline by provider. Bacitracin applied to the wound bed. - Patient will be discharged home with Augmentin as antibiotic prophylaxis. Emergent return precautions discussed for concerns of infection worsening pain erythema. Departure - Departure Clinical Impression: Dog bite of left lower leg Qualifiers: Encounter type: initial encounter Qualified Code(s): S81.852A - Open bite, left lower leg, initial encounter; W54.0XXA - Bitten by dog, initial encounter Condition: Stable Record reviewed to determine appropriate education?: Yes Instructions: ED Bite Dog Prescriptions: Amox/Clav 875/125 [Augmentin] 1 each PO Q12H 7 Days #14 tablet Comments: Nanda you have a superficial bite wound or puncture wound to your right lower leg. Please take the Augmentin to prevent infection twice a day for the next 7 days. You may wash the abrasion and puncture wound with warm soap and water twice a day and apply antibiotic ointment. Return here if you develop fevers red streaking increased redness have increased pain or milky drainage from the wounds.
[2019-09-27] MEDS: BACITRACIN ZINC OINT 1 PACKET TOP STA (20:24)
== END 2019-09-27 20:29 | disposition home or self-care (01) ==
LOC: ED 19:44
DX: S81.851A Open bite, right lower leg, initial encounter (principal); S80.811A Abrasion, right lower leg, initial encounter; W54.0XXA Bitten by dog, initial encounter; W54.8XXA Other contact with dog, initial encounter; Y92.832 Beach as the place of occurrence of the external cause
CPT/HCPCS: 99282; 99283; A9270

== ENCOUNTER 2019-12-07 09:33 | Emergency (ER) | payer MEDICAID ==
--- NOTE | 2019-12-07 09:54 | ED Physician Documentation ---
PD HPI URI - Stated complaint Stated Complaint: THROAT PX/SWELLING - Chief complaint Chief Complaint: Heent - History obtained from History obtained from: Patient - History of Present Illness Timing - onset: How many days ago (2) Timing duration: Days (2) Timing details: Abrupt onset, Still present (She has had 2 days of fairly quickly progressing sore throat and neck adenopathy. No fever. No cough) Associated symptoms: Nasal congestion, Sore throat, Swollen nodes. No: Fever, Productive cough, Dyspnea, NVD Contributing factors: Travel. No: Sick contact, Immunocompromised Similar symptoms before: Has not had sx before Review of Systems Constitutional: reports: Myalgias. denies: Fever, Chills Ears: denies: Ear pain Nose: reports: Congestion. 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 : None HEENT: Other Psych: None Musculoskeletal: None Derm: Eczema, Psoriasis - Past Surgical History Past Surgical History: Yes HEENT: Myringotomy (tubes) - Present Medications Home Medications: Ambulatory Orders Medication Instructions Recorded Confirmed Levonorgestrel [Mirena] 1 each IY 12/05/17 Ondansetron Odt [Zofran] 4 mg TL Q6H PRN #10 tablet 05/20/18 Dicyclomine [Bentyl] 20 mg PO QID PRN #15 capsule 05/22/19 Fluconazole [Diflucan] 150 mg PO ONCE PRN #1 tablet 05/22/19 Loperamide [Imodium] 2 mg PO QID PRN #10 capsule 05/22/19 Nitrofurantoin Monohyd/M-Cryst 100 mg PO BID #10 capsule 05/22/19 [Macrobid 100 mg Capsule] Ondansetron Odt [Zofran] 4 mg TL Q6H PRN #10 tablet 05/22/19 Amox/Clav 875/125 [Augmentin] 1 each PO Q12H 7 Days #14 tablet 09/27/19 Amoxicillin 500 mg PO TID #21 capsule 12/07/19 Fluconazole [Diflucan] 150 mg PO Q3D #2 tablet 12/07/19 Hydrocodone/Acetaminophen [[place] 1 each PO Q6H PRN #10 tablet 12/07/19 5-325 Tablet] dexAMETHasone [Decadron] 4 mg PO DAILY #5 tablet 12/07/19 - Allergies Allergies/Adverse Reactions: Allergies Allergy/AdvReac Type Severity Reaction Status Date / Time No Known Drug Allergies Allergy Verified 12/07/19 09:40 - Social History Does the pt smoke?: No Smoking Status: Never smoker Does the pt drink ETOH?: Yes Does the pt have substance abuse?: Yes - Immunizations Immunizations are current?: No Immunizations: TDAP >10years/unknown - POLST Patient has POLST: No PD ED PE NORMAL - Vitals Vital signs reviewed: Yes - General General: Alert and oriented X 3, Well developed/nourished - HEENT HEENT: No: Pharynx benign (The tonsils are enlarged with redness and some exudate. There is no peritonsillar swelling or uvular deviation) - Neck Neck: Supple, no meningeal sign, Other (Anterior adenopathy that is tender) - Cardiac Cardiac: RRR, No murmur - Respiratory Respiratory: Clear bilaterally - Abdomen Abdomen: Soft, Non tender - Derm Derm: Normal color, Warm and dry, No rash Results - Vitals Vitals: Vital Signs - 24 hr 12/07/19 09:40 Temperature 36.8 C Heart Rate 100 Respiratory 16 Rate Blood Pressure 124/68 O2 Saturation 100 Oxygen O2 Source Room air - Labs Labs: Laboratory Tests 12/07/19 09:51 Group A Strep Rapid POSITIVE H PD MEDICAL DECISION MAKING - ED course Complexity details: reviewed results (Rapid strep test is positive), considered differential, d/w patient Departure - Departure Disposition: 01 Home, Self Care Clinical Impression: Acute streptococcal tonsillitis Qualifiers: Streptococcal tonsillitis recurrence: non-recurrent Qualified Code(s): J03.00 - Acute streptococcal tonsillitis, unspecified Condition: Stable Record reviewed to determine appropriate education?: Yes Instructions: ED Strep Pharyngitis Conf Prescriptions: Amoxicillin 500 mg PO TID #21 capsule dexAMETHasone [Decadron] 4 mg PO DAILY #5 tablet Fluconazole [Diflucan] 150 mg PO Q3D #2 tablet Hydrocodone/Acetaminophen [[place] 5-325 Tablet] 1 each PO Q6H PRN #10 tablet PRN Reason: Pain Comments: Your strep test is positive. Take amoxicillin 3 times a day for a week. Add Decadron steroid for inflammation daily for several more days. Use Tylenol or ibuprofen several times a day for pain and add hydrocodone if needed. I would anticipate improvement over the next couple of days and resolution in commonly of 4 to 5 days. Recheck if not improving in that timeframe.
[2019-12-07 10:11] LABS: RAPID STREP SCREEN POSITIVE (Negative)
[2019-12-07] MEDS: HYDROcod/ACETAM 5/325 MG TABLET PO STA (10:13)
[2019-12-07] MEDS: cephALEXin 250 MG CAPSULE PO STA (10:13)
[2019-12-07] MEDS: CHERRY SYRUP 10 ML UDC PO ONE (10:13)
[2019-12-07] MEDS: DEXAMETHASONE 10 MG/ML VIAL PO STA (10:13)
[2019-12-07] MEDS: diphenhydrAMINE ELIXIR 25 MG/10 ML UDC PO STA (10:13)
[2019-12-07 10:46] VITALS: BP 126/68
== END 2019-12-07 10:45 | disposition home or self-care (01) ==
LOC: ED 09:33
DX: J03.00 Acute streptococcal tonsillitis, unspecified (principal)
CPT/HCPCS: 87430; 99283; 99284; A9270

== ENCOUNTER 2020-02-21 10:31 | Emergency (ER) | payer MEDICAID ==
[2020-02-21] MEDS ORDERED: SODIUM CHLORIDE 0.9% 1,000 ML IV STA (11:37)
[2020-02-21] MEDS ORDERED: DEXAMETHASONE 10 MG/ML VIAL IVP STA (11:37)
[2020-02-21] MEDS ORDERED: KETOROLAC 30 MG/ML VIAL IVP STA (11:38)
[2020-02-21] MEDS ORDERED: PROCHLORPERAZINE 10 MG/2 ML VIAL IVP STA (11:38)
[2020-02-21] MEDS ORDERED: diphenhydrAMINE INJ 50 MG/ML VIAL IVP STA (11:38)
--- NOTE | 2020-02-21 11:42 | ED Physician Documentation ---
PD HPI HEADACHE - Stated complaint Stated Complaint: MIGRAINE - Chief complaint Chief Complaint: Heent - History obtained from History obtained from: Patient, Family (grandmother) - History of Present Illness Timing - onset: How many weeks ago (1) Timing - onset during: Rest Timing - duration: Weeks (1) Timing - details: Gradual onset, Still present, Waxing and waning Location: Front Quality: Throbbing Associated symptoms: Stiff neck, Nausea, Vomiting Improved by: Rest, Dark room, Quiet Worsened by: Light, Noise, Moving Contributing factors: No: Anticoagulated Similar symptoms before: Diagnosis (migraine) Recently seen: Not recently seen - Additional information Additional information: 29 y/o female with a history of migraine has had a headache this past week with neck stiffness and vomiting. She thinks she had an aura before the headache and she has not had this resolve with sleep. She has not been formally diagnosed with migraine but has responded to migraine medications and she has headaches lasting one day about 3-4 times per month for years. Review of Systems Constitutional: denies: Fever Eyes: denies: Decreased vision Ears: reports: Ear pain, Tinnitus/ringing Nose: reports: Other (nasal pain). denies: Rhinorrhea / runny nose, Congestion Throat: denies: Sore throat Cardiac: denies: Chest pain / pressure, Palpitations Respiratory: denies: Dyspnea, Cough GI: reports: Nausea, Vomiting, Diarrhea (X1). denies: Abdominal Pain : denies: Dysuria, Frequency Skin: denies: Rash Musculoskeletal: reports: Neck pain. denies: Back pain, Extremity pain Neurologic: reports: Headache. 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 HEENT: Other Psych: None Musculoskeletal: None Derm: Eczema, Psoriasis - Past Surgical History Past Surgical History: Yes HEENT: Myringotomy (tubes) - Present Medications Home Medications: Ambulatory Orders Medication Instructions Recorded Confirmed Levonorgestrel [Mirena] 1 each IY 12/05/17 Ondansetron Odt [Zofran] 4 mg TL Q6H PRN #10 tablet 05/20/18 Dicyclomine [Bentyl] 20 mg PO QID PRN #15 capsule 05/22/19 Fluconazole [Diflucan] 150 mg PO ONCE PRN #1 tablet 05/22/19 Loperamide [Imodium] 2 mg PO QID PRN #10 capsule 05/22/19 Nitrofurantoin Monohyd/M-Cryst 100 mg PO BID #10 capsule 05/22/19 [Macrobid 100 mg Capsule] Ondansetron Odt [Zofran] 4 mg TL Q6H PRN #10 tablet 05/22/19 Amox/Clav 875/125 [Augmentin] 1 each PO Q12H 7 Days #14 tablet 09/27/19 Amoxicillin 500 mg PO TID #21 capsule 12/07/19 Fluconazole [Diflucan] 150 mg PO Q3D #2 tablet 12/07/19 Hydrocodone/Acetaminophen [[place] 1 each PO Q6H PRN #15 tablet 12/07/19 5-325 Tablet] dexAMETHasone [Decadron] 4 mg PO DAILY #5 tablet 12/07/19 - Allergies Allergies/Adverse Reactions: Allergies Allergy/AdvReac Type Severity Reaction Status Date / Time No Known Drug Allergies Allergy Verified 02/21/20 10:54 - Social History Does the pt smoke?: No Smoking Status: Never smoker Does the pt drink ETOH?: No Does the pt have substance abuse?: No - Immunizations Immunizations are current?: No Immunizations: TDAP >10years/unknown - POLST Patient has POLST: No PD ED PE NORMAL - Vitals Vital signs reviewed: Yes (normal ) - General General: Alert and oriented X 3, No acute distress, Well developed/nourished - HEENT HEENT: Atraumatic, PERRL, EOMI, Other (right TM is normal the left is with minimal inflamation and no distortion of the landmarks. ) - Neck Neck: Supple, no meningeal sign, No bony TTP, Other (There is tenderness to palpation at the insertion of the trapezius to the occiput. ) - Cardiac Cardiac: RRR, No murmur - Respiratory Respiratory: No respiratory distress, Clear bilaterally - Abdomen Abdomen: Soft, Non tender, Other (mild epigastric tenderness) - Back Back: No CVA TTP, No spinal TTP - Derm Derm: Normal color, No rash Results - Vitals Vitals: Vital Signs - 24 hr 02/21/20 02/21/20 02/21/20 10:44 11:21 12:51 Temperature 37 C 37.1 C 36.8 C Heart Rate 74 72 70 Respiratory 20 16 18 Rate Blood Pressure 115/69 108/64 100/72 O2 Saturation 99 99 98 Oxygen O2 Source Room air PD MEDICAL DECISION MAKING - ED course Complexity details: reviewed old records, re-evaluated patient, considered differential, d/w patient ED course: 29-year-old female with a migraine headache is administered a cocktail of a liter of saline 10 mg of dexamethasone 10 mg of Compazine 25 mg of Benadryl intravenously. She has resolution of her headache. Departure - Departure Disposition: 01 Home, Self Care Clinical Impression: Migraine Qualifiers: Migraine type: with aura Status migrainosus presence: without status migrainosus Intractability: not intractable Qualified Code(s): G43.109 - Migraine with aura, not intractable, without status migrainosus Condition: Stable Instructions: ED Headache Migraine Follow-Up: Moe Fowler [Primary Care Provider] - Discharge Date/Time: 02/21/20 12:52
[2020-02-21 12:52] VITALS: BP 100/72
== END 2020-02-21 12:52 | disposition home or self-care (01) ==
LOC: ED 10:31
DX: G43.109 Migraine with aura, not intractable, without status migrainosus (principal)
CPT/HCPCS: 96374; 99283; 99284; J1200

== ENCOUNTER 2020-12-19 14:48 | Emergency (ER) | payer MEDICAID ==
[2020-12-19 15:02] VITALS: BP 117/86
[2020-12-19] MEDS ORDERED: SODIUM CHLORIDE 0.9% 1,000 ML IV STA (16:50)
[2020-12-19] MEDS ORDERED: diphenhydrAMINE INJ 50 MG/ML VIAL IVP STA (16:50)
[2020-12-19] MEDS ORDERED: KETOROLAC 30 MG/ML VIAL IVP STA (16:50)
[2020-12-19] MEDS ORDERED: DROPERIDOL 5 MG/2 ML VIAL IVP STA (16:50)
[2020-12-19 16:56] LABS: BASOPHILS # (AUTO) 0.1 10^3/uL (0.0-0.1); BASOPHILS % (AUTO) 0.7 %; EOSINOPHILS # (AUTO) 0.1 10^3/uL (0.0-0.7); EOSINOPHILS % (AUTO) 0.5 %; HCT - HEMATOCRIT 40.7 % (37.0-47.0); HGB - HEMOGLOBIN 13.5 g/dL (12.0-16.0); LYMPHOCYTES # (AUTO) 1.6 10^3/uL (1.5-3.5); LYMPHOCYTES % (AUTO) 14.7 %; MEAN CORPUSCULAR HEMOGLOBIN 30.3 pg (27.0-31.0); MEAN CORPUSCULAR HGB CONC 33.2 g/dL (32.0-36.0); MEAN CORPUSCULAR VOLUME 91.5 fL (81.0-99.0); MEAN PLATELET VOLUME 10.9 fL (7.9-10.8); MONOCYTES # (AUTO) 0.5 10^3/uL (0.0-1.0); MONOCYTES % (AUTO) 4.2 %; NEUTROPHILS # (AUTO) 8.6 10^3/uL (1.5-6.6); NEUTROPHILS % (AUTO) 79.5 %; PLT - PLATELET COUNT 260 10^3/uL (130-450); RED BLOOD COUNT 4.45 10^6/uL (4.20-5.40); RED CELL DISTRIBUTION WIDTH 12.6 % (12.0-15.0); WHITE BLOOD COUNT 10.7 x10^3/uL (4.8-10.8)
[2020-12-19 17:04] LABS: BILIRUBIN,URINE NEGATIVE (NEGATIVE); GLUCOSE, URINE (UA) NEGATIVE (NEGATIVE); KETONES,URINE (UA) 15 mg/dL (NEGATIVE); LEUKOCYTE ESTERASE, URINE NEGATIVE (NEGATIVE); NITRITE,URINE NEGATIVE (NEGATIVE); OCCULT BLOOD,URINE SMALL (NEGATIVE); PH,URINE 8.5 PH (5.0-7.5); PROTEIN,URINE NEGATIVE (NEGATIVE); UROBILINOGEN,URINE 0.2 (NORMAL) E.U./dL (NORMAL)
[2020-12-19 17:06] LABS: AMORPHOUS SEDIMENT,UR Moderate /LPF; BACTERIA,URINE Few /HPF (None Seen); CASTS, URINE 0-2 RBC Casts /LPF; CLARITY,URINE SL. CLOUDY (CLEAR); HCG UR QUAL NEGATIVE; MUCUS,URINE Moderate Strands; RBC,URINE 0-5 /HPF (0-5); SQUAMOUS EPITHELIAL CELL,UR FEW Squamous (<= Few); WBC,URINE 0-3 /HPF (0-5)
[2020-12-19 17:13] LABS: ALBUMIN 4.6 g/dL (3.2-5.5); ALBUMIN/GLOBULIN RATIO 1.4 (1.0-2.2); CALCIUM 9.3 mg/dL (8.5-10.3); CREATININE 0.6 mg/dL (0.4-1.0); POTASSIUM 4.3 mmol/L (3.5-5.0); TOTAL PROTEIN 7.9 g/dL (6.7-8.2)
--- NOTE | 2020-12-19 18:15 | ED Physician Documentation ---
History of Present Illness - Stated complaint Stated Complaint: DOMINGUEZ,N/V, COVID EXPOSURE - Chief complaint Chief Complaint: Neuro - History obtained from History obtained from: Patient - History of Present Illness Timing: Today Pain level max: 8 Pain level now: 8 - Additonal information Additional information: 30-year-old female states that she normally has 3-4 migraines per month. She states that this migraine has gotten worse throughout the day. Has not taken anything for this at home yet. Has had nausea and vomiting as well. Concerned she cannot keep medication down. This is similar to her normal migraine. Holoacranial, gradual onset. No fevers. No trauma. Denies any possibility of . 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 Psych: None Musculoskeletal: None Derm: Eczema, Psoriasis - Past Surgical History Past Surgical History: Yes HEENT: Myringotomy (tubes) - Present Medications Home Medications: Ambulatory Orders Medication Instructions Recorded Confirmed Levonorgestrel [Mirena] 1 each IY 12/05/17 Ondansetron Odt [Zofran] 4 mg TL Q6H PRN #10 tablet 05/20/18 Dicyclomine [Bentyl] 20 mg PO QID PRN #15 capsule 05/22/19 Fluconazole [Diflucan] 150 mg PO ONCE PRN #1 tablet 05/22/19 Loperamide [Imodium] 2 mg PO QID PRN #10 capsule 05/22/19 Nitrofurantoin Monohyd/M-Cryst 100 mg PO BID #10 capsule 05/22/19 [Macrobid 100 mg Capsule] Ondansetron Odt [Zofran] 4 mg TL Q6H PRN #10 tablet 05/22/19 Amox/Clav 875/125 [Augmentin] 1 each PO Q12H 7 Days #14 tablet 09/27/19 Amoxicillin 500 mg PO TID #21 capsule 12/07/19 Fluconazole [Diflucan] 150 mg PO Q3D #2 tablet 12/07/19 Hydrocodone/Acetaminophen [[place] 1 each PO Q6H PRN #15 tablet 12/07/19 5-325 Tablet] dexAMETHasone [Decadron] 4 mg PO DAILY #5 tablet 12/07/19 Butalb/Acetaminophen/Caffeine 1 cap PO Q6H PRN #10 cap 12/19/20 [Fioricet 50-300-40 mg Capsule] Ondansetron Odt [Zofran] 4 mg TL Q6H PRN #10 tablet 12/19/20 - Allergies Allergies/Adverse Reactions: Allergies Allergy/AdvReac Type Severity Reaction Status Date / Time No Known Drug Allergies Allergy Verified 12/19/20 15:02 - Social History Does the pt smoke?: No Smoking Status: Never smoker Does the pt drink ETOH?: No Does the pt have substance abuse?: No - Immunizations Immunizations are current?: No Immunizations: TDAP >10years/unknown - POLST Patient has POLST: No PD ED PE NORMAL - Vitals Vital signs reviewed: Yes - General General: Alert and oriented X 3, No acute distress, Well developed/nourished - HEENT HEENT: Atraumatic, PERRL, Moist mucous membranes - Neck Neck: Supple, no meningeal sign - Cardiac Cardiac: RRR - Respiratory Respiratory: No respiratory distress, Clear bilaterally - Abdomen Abdomen: Soft, Non tender, Non distended - Derm Derm: Warm and dry - Neuro Neuro: Alert and oriented X 3, diabetes educator 2-12 intact, No motor deficit, No sensory deficit, Normal speech Eye Opening: Spontaneous Motor: Obeys Commands Verbal: Oriented GCS Score: 15 - Psych Psych: Normal mood, Normal affect Results - Vitals Vitals: Vital Signs - 24 hr 12/19/20 14:57 Temperature 36.4 C L Heart Rate 68 Respiratory 14 Rate Blood Pressure 117/86 H O2 Saturation 100 Oxygen O2 Source Room air - Labs Labs: Laboratory Tests 12/19/20 12/19/20 12/19/20 16:45 16:50 16:50 WBC 10.7 RBC 4.45 Hgb 13.5 Hct 40.7 MCV 91.5 MCH 30.3 MCHC 33.2 RDW 12.6 Plt Count 260 MPV 10.9 H Neut # (Auto) 8.6 H Lymph # (Auto) 1.6 [place] # (Auto) 0.5 Eos # (Auto) 0.1 Baso # (Auto) 0.1 Absolute Nucleated RBC 0.00 Nucleated RBC % 0.0 Sodium 138 Potassium 4.3 Chloride 104 Carbon Dioxide 25 Anion Gap 9.0 BUN 13 Creatinine 0.6 Estimated GFR (MDRD) 119 Glucose 107 H Calcium 9.3 Total Bilirubin 1.0 AST 21 ALT 15 Alkaline Phosphatase 67 Total Protein 7.9 Albumin 4.6 Globulin 3.3 Albumin/Globulin Ratio 1.4 Lipase 23 Urine Color YELLOW Urine Clarity SL. CLOUDY Urine pH 8.5 H Ur Specific [place] 1.020 Urine Protein NEGATIVE Urine Glucose (UA) NEGATIVE Urine Ketones 15 H Urine Occult Blood SMALL H Urine Nitrite NEGATIVE Urine Bilirubin NEGATIVE Urine Urobilinogen 0.2 (NORMAL) Ur Leukocyte Esterase NEGATIVE Urine RBC 0-5 Urine WBC 0-3 Ur Squamous Epith Cells FEW Squamous Amorphous Sediment Moderate Urine Bacteria Few Urine Casts 0-2 RBC Casts Urine Mucus Moderate Strands Ur Microscopic Review INDICATED Urine Culture Comments NOT INDICATED Urine HCG, Qual NEGATIVE PD MEDICAL DECISION MAKING - ED course Complexity details: considered differential, d/w patient ED course: Patient given Toradol, droperidol and Benadryl. Given IV fluids. Headache resolved and request to go home. Patient is well-appearing, nontoxic. Afebrile. No evidence of subarachnoid hemorrhage. Patient counseled regarding signs and symptoms for which I believe and urgent re-evaluation would be necessary. Patient with good understanding of and agreement to plan and is comfortable going home at this time This document was made in part using voice recognition software. While efforts are made to proofread this document, sound alike and grammatical errors may occur. Departure - Departure Disposition: 01 Home, Self Care Clinical Impression: Migraine Qualifiers: Migraine type: unspecified Status migrainosus presence: without status migrainosus Intractability: not intractable Qualified Code(s): G43.909 - Migraine, unspecified, not intractable, without status migrainosus Condition: Good Instructions: ED Headache Migraine Follow-Up: Moe Fowler [Primary Care Provider] - Within 1 week Prescriptions: Butalb/Acetaminophen/Caffeine [Fioricet 50-300-40 mg Capsule] 1 cap PO Q6H PRN #10 cap PRN Reason: headache Ondansetron Odt [Zofran] 4 mg TL Q6H PRN #10 tablet PRN Reason: Nausea / Vomiting Comments: Your prescriptions were sent to [facility] in [place]. Drink plenty of fluids and rest. Return if you worsen. Forms: Activity restrictions Discharge Date/Time: 12/19/20 18:28
== END 2020-12-19 18:28 | disposition home or self-care (01) ==
LOC: ED 14:48
DX: G43.909 Migraine, unspecified, not intractable, without status migrainosus (principal)
CPT/HCPCS: 36415; 80053; 81001; 81025; 83690; 85025; 96374; 96375; 99283; 99284; J1200; 81003; 87086

== ENCOUNTER 2021-03-05 08:44 | Emergency (ER) | payer MEDICAID ==
[2021-03-05 09:03] VITALS: BP 112/61
== END 2021-03-05 09:49 | disposition home or self-care (01) ==
LOC: ED 08:44
DX: Z53.21 Procedure and treatment not carried out due to patient leaving prior to being seen by health care provider (principal)

== ENCOUNTER 2021-03-07 08:51 | Emergency (ER) | payer MEDICAID ==
--- NOTE | 2021-03-07 09:20 | ED Physician Documentation ---
PD HPI URI - Stated complaint Stated Complaint: SORE THROAT - Chief complaint Chief Complaint: Heent - History obtained from History obtained from: Patient - History of Present Illness Timing - onset: How many days ago (3) Timing duration: Days (3) Timing details: Gradual onset, Still present Associated symptoms: Nasal congestion, Sore throat, Swollen nodes, Dry cough. No: Fever, Chest pain, Dyspnea Contributing factors: No: Sick contact, Unimmunized Similar symptoms before: Has not had sx before Recently seen: Not recently seen Review of Systems Constitutional: reports: Myalgias. denies: Fever, Chills Nose: reports: Congestion Throat: reports: Sore throat Respiratory: reports: Cough GI: denies: Nausea, Vomiting, Diarrhea Skin: denies: Rash Neurologic: reports: Headache (mild). 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 HEENT: Other Psych: None Musculoskeletal: None Derm: Eczema, Psoriasis - Past Surgical History Past Surgical History: Yes HEENT: Myringotomy (tubes) - Present Medications Home Medications: Ambulatory Orders Medication Instructions Recorded Confirmed Levonorgestrel [Mirena] 1 each IY 12/05/17 Ondansetron Odt [Zofran] 4 mg TL Q6H PRN #10 tablet 05/20/18 Dicyclomine [Bentyl] 20 mg PO QID PRN #15 capsule 05/22/19 Fluconazole [Diflucan] 150 mg PO ONCE PRN #1 tablet 05/22/19 Loperamide [Imodium] 2 mg PO QID PRN #10 capsule 05/22/19 Nitrofurantoin Monohyd/M-Cryst 100 mg PO BID #10 capsule 05/22/19 [Macrobid 100 mg Capsule] Ondansetron Odt [Zofran] 4 mg TL Q6H PRN #10 tablet 05/22/19 Amox/Clav 875/125 [Augmentin] 1 each PO Q12H 7 Days #14 tablet 09/27/19 Amoxicillin 500 mg PO TID #21 capsule 12/07/19 Fluconazole [Diflucan] 150 mg PO Q3D #2 tablet 12/07/19 Hydrocodone/Acetaminophen [[place] 1 each PO Q6H PRN #15 tablet 12/07/19 5-325 Tablet] dexAMETHasone [Decadron] 4 mg PO DAILY #5 tablet 12/07/19 Butalb/Acetaminophen/Caffeine 1 cap PO Q6H PRN #10 cap 12/19/20 [Fioricet 50-300-40 mg Capsule] Ondansetron Odt [Zofran] 4 mg TL Q6H PRN #10 tablet 12/19/20 Cetirizine [ZyrTEC] 10 mg PO BID #15 tablet 03/07/21 HYDROcod/ACETAM 5/325 [[place] 5/325] 1 ea PO Q6H PRN #12 tablet 03/07/21 dexAMETHasone [Decadron] 4 mg PO DAILY #5 tablet 03/07/21 - Allergies Allergies/Adverse Reactions: Allergies Allergy/AdvReac Type Severity Reaction Status Date / Time No Known Drug Allergies Allergy Verified 03/05/21 09:03 - Social History Does the pt smoke?: No Smoking Status: Never smoker Does the pt drink ETOH?: No Does the pt have substance abuse?: No - Immunizations Immunizations are current?: No Immunizations: TDAP >10years/unknown - POLST Patient has POLST: No PD ED PE NORMAL - Vitals Vital signs reviewed: Yes - General General: Alert and oriented X 3, No acute distress, Well developed/nourished - HEENT HEENT: Ears normal. No: Pharynx benign (mild tonsillar redness without exudate. ) - Neck Neck: Supple, no meningeal sign, Other (mild anterior adenopathy. ) - Cardiac Cardiac: RRR, No murmur - Respiratory Respiratory: Clear bilaterally - Derm Derm: Normal color, Warm and dry, No rash - Neuro Neuro: Alert and oriented X 3, Normal speech Results - Vitals Vitals: Vital Signs - 24 hr 03/07/21 03/07/21 08:58 11:16 Temperature 36.6 C 36.8 C Heart Rate 68 61 Respiratory 15 16 Rate Blood Pressure 136/69 H 113/71 O2 Saturation 100 100 Oxygen O2 Source Room air - Labs Labs: Laboratory Tests 03/07/21 03/07/21 09:50 09:50 Coronavirus (PCR) NEGATIVE Group A Strep Rapid Negative PD MEDICAL DECISION MAKING - ED course Complexity details: reviewed results (neg rapid strep. Low Centor criteria. Will await cultures. Likely viral. Treat symptoms. Can give short term use pain meds. ), considered differential, d/w patient Departure - Departure Disposition: 01 Home, Self Care Clinical Impression: Upper respiratory infection Qualifiers: URI type: unspecified URI Qualified Code(s): J06.9 - Acute upper respiratory infection, unspecified Pharyngitis Qualifiers: Pharyngitis/tonsillitis etiology: unspecified etiology Qualified Code(s): J02.9 - Acute pharyngitis, unspecified Condition: Stable Record reviewed to determine appropriate education?: Yes Instructions: ED Pharyngitis Viral Follow-Up: Moe Fowler [Primary Care Provider] - Prescriptions: dexAMETHasone [Decadron] 4 mg PO DAILY #5 tablet HYDROcod/ACETAM 5/325 [[place] 5/325] 1 ea PO Q6H PRN #12 tablet PRN Reason: Pain Cetirizine [ZyrTEC] 10 mg PO BID #15 tablet Comments: Stay well hydrated. Tylenol or Ibuprofen for pains; add Hydrocodone as needed for worse pain. Your rapid strep test is negative. The culture will result in a day or 2 to decide if there is a role for antibiotics in this. Meanwhile we will treat for the inflammation soreness and congestion with Decadron cetirizine and adding pain medicine if needed. Off work for couple of days. See how well you are improving. I transmitted your prescriptions to [facility] in [place]. I am prescribing a short course of narcotic pain medication for you. These are potentially dangerous and addictive medications that should be used carefully. These medications may constipate you. Take an [id number] stool softener such as docusate twice daily with plenty of water while taking these medications. If you go 24 hours without a bowel movement, take [id number] MiraLAX, per package instructions. Do not drink or drive while taking these medications. If you received narcotic or sedating medications while in the emergency department do not drive for 24 hours. Store this medication in a safe, secure place and out of reach of children. It is a violation of federal law to give or sell this medication to another person or to use in a manner other than prescribed. The ED will not refill narcotic prescriptions, including prescriptions lost or stolen. You can dispose of unwanted medications at the [facility]'s office or at several pharmacies such as [facility]. Forms: Activity restrictions Discharge Date/Time: 03/07/21 11:17
[2021-03-07] MEDS ORDERED: DEXAMETHASONE 10 MG/ML VIAL PO STA (09:43)
[2021-03-07] MEDS ORDERED: CHERRY SYRUP 10 ML UDC PO ONE (09:43)
[2021-03-07] MEDS ORDERED: diphenhydrAMINE ELIXIR 25 MG/10 ML UDC PO STA (09:43)
[2021-03-07] MEDS ORDERED: LIDOCAINE VISCOUS 2% 15 ML UDC MM STA (09:43)
[2021-03-07] MEDS ORDERED: ACETAMINOPHEN 325 MG TABLET PO STA (09:44)
[2021-03-07 10:14] LABS: RAPID STREP SCREEN Negative (Negative)
[2021-03-07 11:17] VITALS: BP 113/71
== END 2021-03-07 11:17 | disposition home or self-care (01) ==
LOC: ED 08:51
DX: J06.9 Acute upper respiratory infection, unspecified (principal); J02.9 Acute pharyngitis, unspecified; Z20.822 Contact with and (suspected) exposure to COVID-19
CPT/HCPCS: 87070; 87077; 87430; 87635; 99283; A9270

== ENCOUNTER 2021-05-15 21:54 | Emergency (ER) | payer MEDICAID ==
[2021-05-15 22:01] VITALS: BP 121/66
--- NOTE | 2021-05-15 22:50 | ED Physician Documentation ---
PD HPI HEADACHE - Stated complaint Stated Complaint: MIGRANE, R BLURRED VISION - Chief complaint Chief Complaint: Neuro - History obtained from History obtained from: Patient - History of Present Illness Timing - onset: Last night Timing - onset during: Rest Timing - details: Abrupt onset Pain level now: 6 Worst headache ever?: No: Worst headache ever? Location: Right Quality: Throbbing, Aching Associated symptoms: Nausea, Vomiting, Vision changes. No: Fever, Stiff neck, Weakness, Numbness, Syncope, Seizure, Eye pain Improved by: Rest, Dark room, Quiet Worsened by: Light, Noise Contributing factors: No: Anticoagulated, Hypertension Similar symptoms before: No diagnosis (migraines have been suspected but has not been evaluated except ED visits) Recently seen: Not recently seen - Additional information Additional information: c/o right frontoparietal headache since last night with mildly blurred vision right eye. She took excedrin without improvement. She has nausea and vomiting as well. She is photophobic. She says she has had these headache many times over several years and most often will be able to have adequate relief with excedrin such that she can then sleep through the residual headache. She says she has not been evaluated in the outpatient setting for these headache so she does not formally have the diagnosis of migraines but has been told by previous ED practitioners that this was the suspected diagnosis. She is not familiar with m igraine-specific medications such as Imitrex. Review of Systems Constitutional: reports: Reviewed and negative Eyes: reports: Decreased vision (mild blurry vision right eye), Photophobia. denies: Loss of vision Cardiac: reports: Reviewed and negative Respiratory: reports: Reviewed and negative GI: reports: Nausea, Vomiting. denies: Abdominal Pain : denies: Now EGA Neurologic: reports: Headache. 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 HEENT: Other Psych: None Musculoskeletal: None Derm: Eczema, Psoriasis - Past Surgical History Past Surgical History: Yes HEENT: Myringotomy (tubes) - Present Medications Home Medications: Ambulatory Orders Medication Instructions Recorded Confirmed Levonorgestrel [Mirena] 1 each IY 12/05/17 Ondansetron Odt [Zofran] 4 mg TL Q6H PRN #10 tablet 05/20/18 Dicyclomine [Bentyl] 20 mg PO QID PRN #15 capsule 05/22/19 Fluconazole [Diflucan] 150 mg PO ONCE PRN #1 tablet 05/22/19 Loperamide [Imodium] 2 mg PO QID PRN #10 capsule 05/22/19 Nitrofurantoin Monohyd/M-Cryst 100 mg PO BID #10 capsule 05/22/19 [Macrobid 100 mg Capsule] Ondansetron Odt [Zofran] 4 mg TL Q6H PRN #10 tablet 05/22/19 Amox/Clav 875/125 [Augmentin] 1 each PO Q12H 7 Days #14 tablet 09/27/19 Amoxicillin 500 mg PO TID #21 capsule 12/07/19 Fluconazole [Diflucan] 150 mg PO Q3D #2 tablet 12/07/19 Hydrocodone/Acetaminophen [[place] 1 each PO Q6H PRN #15 tablet 12/07/19 5-325 Tablet] dexAMETHasone [Decadron] 4 mg PO DAILY #5 tablet 12/07/19 Butalb/Acetaminophen/Caffeine 1 cap PO Q6H PRN #10 cap 12/19/20 [Fioricet 50-300-40 mg Capsule] Ondansetron Odt [Zofran] 4 mg TL Q6H PRN #10 tablet 12/19/20 Cetirizine [ZyrTEC] 10 mg PO BID #15 tablet 03/07/21 HYDROcod/ACETAM 5/325 [[place] 5/325] 1 ea PO Q6H PRN #12 tablet 03/07/21 dexAMETHasone [Decadron] 4 mg PO DAILY #5 tablet 03/07/21 Prochlorperazine Maleate 10 mg PO Q6HR PRN #14 tablet 05/15/21 SUMAtriptan [Imitrex] 25 mg PO ONCE PRN #14 tablet 05/15/21 - Allergies Allergies/Adverse Reactions: Allergies Allergy/AdvReac Type Severity Reaction Status Date / Time No Known Drug Allergies Allergy Verified 05/15/21 21:57 - Social History Does the pt smoke?: No Smoking Status: Never smoker Does the pt drink ETOH?: No Does the pt have substance abuse?: No - Immunizations Immunizations are current?: No Immunizations: TDAP >10years/unknown - POLST Patient has POLST: No PD ED PE NORMAL - Vitals Vital signs reviewed: Yes - General General: Alert and oriented X 3, No acute distress, Well developed/nourished - HEENT HEENT: PERRL, EOMI, Moist mucous membranes - Neck Neck: Supple, no meningeal sign - Cardiac Cardiac: RRR, No murmur - Respiratory Respiratory: No respiratory distress, Clear bilaterally - Abdomen Abdomen: Soft, Non tender - Neuro Neuro: Alert and oriented X 3, 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 Her visual changes of the right eye sound suggestive of scotoma, so possibly this is migraine with aura. Based on medications received on previous ED visits that have afforded relief of her headaches, she is given compazine, benadryl, toradol, and decadron. I gave the option of d/c versus waiting in ED to see if these medications provide adequate relief; she prefers d/c home at this time, will return if worse. I encouraged her to f/u in outpatient setting with PCP. Prescriptions for compazine as well as imitrex were transmitted to her pharmacy. Departure - Departure Disposition: 01 Home, Self Care Clinical Impression: Migraine Qualifiers: Migraine type: with aura Status migrainosus presence: with status migrainosus Intractability: not intractable Qualified Code(s): G43.101 - Migraine with aura, not intractable, with status migrainosus Condition: Good Instructions: ED Headache Migraine Follow-Up: Moe Fowler [Primary Care Provider] - Prescriptions: Prochlorperazine Maleate 10 mg PO Q6HR PRN #14 tablet PRN Reason: Nausea / Vomiting SUMAtriptan [Imitrex] 25 mg PO ONCE PRN #14 tablet PRN Reason: Migraine Comments: Prescriptions for prochlorperazine (antinauseant) and imitrex (anti-migraine medication) have been electronically submitted to [facility] pharmacy in [place] Forms: Activity restrictions Discharge Date/Time: 05/15/21 23:47
[2021-05-15] MEDS: CHERRY SYRUP 10 ML UDC PO ONE (23:37)
[2021-05-15] MEDS: KETOROLAC 60 MG/2 ML VIAL IM STA (23:37)
[2021-05-15] MEDS: diphenhydrAMINE 25 MG CAPSULE PO STA (23:37)
[2021-05-15] MEDS: DEXAMETHASONE 10 MG/ML VIAL PO STA (23:37)
[2021-05-15] MEDS: PROCHLORPERAZINE 5 MG TABLET PO STA (23:47)
== END 2021-05-15 23:47 | disposition home or self-care (01) ==
LOC: ED 21:54
DX: G43.101 Migraine with aura, not intractable, with status migrainosus (principal)
CPT/HCPCS: 96372; 99283; 99284; A9270

== ENCOUNTER 2021-06-17 07:36 | Emergency (ER) | payer MEDICAID ==
--- NOTE | 2021-06-17 08:15 | ED Physician Documentation ---
History of Present Illness - Stated complaint Stated Complaint: FEMALE /GI - Chief complaint Chief Complaint: General - History obtained from History obtained from: Patient - Additonal information Additional information: The patient comes to the emergency department chief complaint of "it hurts some lance around my anus when I wipe" and "I have lumps in my groin". The patient states that both symptoms have been going on for about the last 3 days. She denies any genital lesions, and states that she shaves the hair around her anal area and thought maybe she had just gotten some razor burn. However, it seems as though the perianal area has gotten increasingly sore and "raw", and patient is concerned that maybe something else was going on. She also states that she was shaving and noticed that she had painful lumps in her inguinal area, which she has never noticed before. She has been under treatment for the last 2 weeks with antibiotics for UTI and states she just finished couple days ago. She has been having some diarrhea throughout that time, which is still going on somewhat. She denies fevers or chills. No abdominal pain. No vaginal symptoms. The patient states that she is sexually active with one partner, with whom she has been for 3 months. She states he has not had any symptoms and that he got testing done before they became sexually active and showed her the paperw ork. Patient states she also was fully tested for various sexually transmitted infections also found to be negative. She has never had herpes symptoms previously. No other complaints at this time. Review of Systems Ten Systems: 10 systems reviewed and negative Constitutional: reports: Reviewed and negative Eyes: reports: Reviewed and negative Ears: reports: Reviewed and negative Nose: reports: Reviewed and negative Throat: reports: Reviewed and negative Cardiac: reports: Reviewed and negative Respiratory: reports: Reviewed and negative GI: reports: Other (Perianal discomfort) : reports: Reviewed and negative Skin: reports: Reviewed and negative Musculoskeletal: reports: Reviewed and negative Neurologic: reports: Reviewed and negative Psychiatric: reports: Reviewed and negative Endocrine: reports: Reviewed and negative Immunocompromised: reports: Reviewed and negative PD PAST MEDICAL HISTORY - Past Medical History Past Medical History: Yes Cardiovascular: None Respiratory: Asthma Neuro: Migraines Endocrine/Autoimmune: None GI: GERD, 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 Psych: None Musculoskeletal: None Derm: Eczema, Psoriasis - Past Surgical History Past Surgical History: Yes HEENT: Myringotomy (tubes) - Present Medications Home Medications: Ambulatory Orders Medication Instructions Recorded Confirmed Levonorgestrel [Mirena] 1 each IY UD 12/05/17 06/17/21 Acyclovir 400 mg PO TID #21 tablet 06/17/21 Escitalopram [Lexapro] 20 mg PO DAILY 06/17/21 06/17/21 - Allergies Allergies/Adverse Reactions: Allergies Allergy/AdvReac Type Severity Reaction Status Date / Time No Known Drug Allergies Allergy Verified 06/17/21 07:44 - Social History Does the pt smoke?: No Smoking Status: Never smoker Does the pt drink ETOH?: No Does the pt have substance abuse?: No - Immunizations Immunizations are current?: No Immunizations: TDAP >10years/unknown - POLST Patient has POLST: No PD ED PE NORMAL - Vitals Vital signs reviewed: Yes - General General: Alert and oriented X 3, No acute distress, Well developed/nourished - HEENT HEENT: Atraumatic, PERRL, EOMI, Moist mucous membranes - Neck Neck: Supple, no meningeal sign - Respiratory Respiratory: No respiratory distress - Abdomen Abdomen: Soft, Non tender, Non distended - Rectal Rectal: Other (Multiple small raised perianal lesions with ulceration versus avulsion of the apices. Occasional scabbed lesions. No genital mucosal lesions. No hemorrhoids.) - Derm Derm: Warm and dry - Extremities Extremities: No deformity, Other (Shotty lymph nodes bilaterally and inguinal area. Mobile, approximately 1 cm diameter, mildly tender without erythema, induration, or edema of surrounding tissue.) - Neuro Neuro: Alert and oriented X 3 - Psych Psych: Normal mood, Normal affect Results - Vitals Vitals: Vital Signs - 24 hr 06/17/21 06/17/21 07:40 08:46 Temperature 36.4 C L 36.7 C Heart Rate 88 74 Respiratory 16 18 Rate Blood Pressure 115/68 106/61 O2 Saturation 100 100 Oxygen O2 Source Room air PD MEDICAL DECISION MAKING - ED course Complexity details: considered differential, d/w patient ED course: I discussed with the patient that her lymphadenopathy is normal and appropriate for the area. As far as her perianal burning and pain, it is difficult to tell whether she has a folliculitis that has been worsened by avulsion of the tops of the lesions, due to shaving, or whether the patient is having herpetic outbreak. The patient does not have any genital mucosal lesions, which would be a bit unusual for a herpes outbreak, but does admit to having both vaginal and anal intercourse. She does note that her partner has not had any symptoms and that both of them had negative testing before becoming sexually active. At this point in time, I have offered the patient a course of acyclovir, but the patient would like to be tested for herpes first before undergoing this medication. We have obtained swab cultures of the lesions which are pending at this time. We have discussed using a barrier ointment or cream such as Desitin or something like cornstarch to dry and lessen friction in the area. We discussed the usual indications for follow-up and return. Departure - Departure Disposition: 01 Home, Self Care Clinical Impression: Inguinal lymphadenopathy, Perianal lesion Condition: Stable Instructions: Lymphadenopathy, ED Herpes Simplex Virus Type 2 Prescriptions: Acyclovir 400 mg PO TID #21 tablet Comments: You have mild enlargement of the lymph nodes in your groin area, which is a normal place to feel them. They are of normal size and mobile and do not feel cancerous. Additionally, there is no evidence of infection of the tissue surrounding the lymph nodes. It is important that you follow-up on the results of the herpes swab testing that was done today. You can do this by going to the hospital website at [email or web address], clicking on the "my [facility]" tab, and signing up for the patient portal, where you can monitor your test results. If your herpes test come back positive, please fill the prescription for acyclovir. It is important that you check with any sexual partners to see if they are having her have had symptoms. If you have repeated flareups like this, then it is most likely to be herpes, though at this point, it is possible that you have bumps from shaving that have gotten irritated from the diarrhea you have been having. To help with your symptoms and discomfort, you may use either cornstarch or Desitin cream/paste to protect the area from moisture, which will cause further irritation. Please abstain from any further shaving until the symptoms have resolved. Discharge Date/Time: 06/17/21 08:46
[2021-06-17 08:50] VITALS: BP 106/61
== END 2021-06-17 08:46 | disposition home or self-care (01) ==
LOC: ED 07:36
DX: R59.0 Localized enlarged lymph nodes (principal); L29.0 Pruritus ani
CPT/HCPCS: 99282; 99283

== ENCOUNTER 2021-06-20 15:37 | Emergency (ER) | payer MEDICAID ==
[2021-06-20 15:47] VITALS: BP 113/56
--- NOTE | 2021-06-20 16:07 | ED Physician Documentation ---
History of Present Illness - Stated complaint Stated Complaint: TEST - Chief complaint Chief Complaint: General - History obtained from History obtained from: Patient - History of Present Illness Pain level max: 0 Pain level now: 0 - Additonal information Additional information: Patient is a 30-year-old female who states that she has perianal lesions. She was seen here recently, concern for potential HSV. Her swab however was lost. Therefore she came back to be reswabbed. She is not having any vaginal discharge or bleeding. Has never had similar symptoms previously. She states that it is painful and she is having some diarrhea. No loss of bowel or bladder control. 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 : None HEENT: Other Psych: None Musculoskeletal: None Derm: Eczema, Psoriasis - Past Surgical History Past Surgical History: Yes HEENT: Myringotomy (tubes) - Present Medications Home Medications: Ambulatory Orders Medication Instructions Recorded Confirmed Levonorgestrel [Mirena] 1 each IY UD 12/05/17 06/17/21 Acyclovir 400 mg PO TID #21 tablet 06/17/21 Escitalopram [Lexapro] 20 mg PO DAILY 06/17/21 06/17/21 HYDROcod/ACETAM 5/325 [[place] 5/325] 1 - 2 ea PO Q6H PRN #14 tablet 06/20/21 Lidocaine Ointment 5% [Xylocaine 1 applic TOP QID PRN #35.44 gm 06/20/21 Ointment 5%] Valacyclovir HCl [Valtrex] 1,000 mg PO BID #20 tablet 06/20/21 - Allergies Allergies/Adverse Reactions: Allergies Allergy/AdvReac Type Severity Reaction Status Date / Time No Known Drug Allergies Allergy Verified 06/20/21 15:45 - Social History Does the pt smoke?: No Smoking Status: Never smoker Does the pt drink ETOH?: No Does the pt have substance abuse?: No - Immunizations Immunizations are current?: No Immunizations: TDAP >10years/unknown - POLST Patient has POLST: No PD ED PE NORMAL - Vitals Vital signs reviewed: Yes - General General: Alert and oriented X 3, No acute distress - HEENT HEENT: Moist mucous membranes - Neck Neck: Supple, no meningeal sign - Cardiac Cardiac: RRR - Respiratory Respiratory: No respiratory distress, Clear bilaterally - Abdomen Abdomen: Soft, Non tender, Non distended - Female Female : Pt declined (declined pelvic exam), Master Barber present (Roseann RN), Other (Multiple flat ulcerations, perirectal. No bleeding. No drainage) - Back Back: No CVA TTP, No spinal TTP - Derm Derm: Warm and dry - Extremities Extremities: No edema - Neuro Neuro: Alert and oriented X 3 - Psych Psych: Normal mood, Normal affect Results - Vitals Vitals: Vital Signs - 24 hr 06/20/21 15:45 Temperature 36.5 C Heart Rate 73 Respiratory 16 Rate Blood Pressure 113/56 L O2 Saturation 99 Oxygen O2 Source Room air - Labs Labs: Laboratory Tests 06/20/21 16:00 C. glabrata (PCR) NEGATIVE C. krusei (PCR) NEGATIVE Caro species DNA NEGATIVE T. vaginalis (PCR) NEGATIVE Bact Vaginosis (PCR) POSITIVE A PD MEDICAL DECISION MAKING - ED course Complexity details: reviewed old records, considered differential, d/w patient ED course: Herpes swab was performed. Patient also consented to swabs for the bacterial vaginitis panel as well as gonorrhea and chlamydia. We will treat presumptively for herpes. We will place on Valtrex. We will also prescribe pain medication for home. Can use topical lidocaine to help with pain control as well. Patient counseled regarding signs and symptoms for which I believe and urgent re-ev aluation would be necessary. Patient with good understanding of and agreement to plan and is comfortable going home at this time This document was made in part using voice recognition software. While efforts are made to proofread this document, sound alike and grammatical errors may occur. Departure - Departure Disposition: 01 Home, Self Care Clinical Impression: Perianal lesion Condition: Good Instructions: STDs, Herpes, ED Herpes Simplex Virus Type 2 Follow-Up: Moe Fowler [Primary Care Provider] - As Needed Prescriptions: HYDROcod/ACETAM 5/325 [[place]phr[place] 5/325] 1 - 2 ea PO Q6H PRN #14 tablet PRN Reason: Pain Valacyclovir HCl [Valtrex] 1,000 mg PO BID #20 tablet Lidocaine Ointment 5% [Xylocaine Ointment 5%] 1 applic TOP QID PRN #35.44 gm PRN Reason: rectal pain Comments: Please follow-up with your doctor for further care. You can always check your results on the patient portal in the [employer] website. Your prescriptions were sent to [facility] in [place]. Please return if you worsen. I am prescribing a short course of narcotic pain medication for you. These are potentially dangerous and addictive medications that should be used carefully. These medications may constipate you. Take an bzsa-oxi-owmnfgk stool softener (docusate) twice daily with plenty of water while taking these medications. If you go 24 hours without a bowel movement, take tggs-cqn-wvufhsg miralax, per package instructions. Do not drink or drive while taking these medications. If you received narcotic or sedating medications while in the emergency department, do not drive for 24 hours. Store this medication in a safe, secure place and out of reach of children. It is a violation of federal law to give or sell this medication to another person or to use in a manner other than prescribed. The ED will not refill narcotic prescriptions, including prescriptions lost or stolen. To dispose of unwanted medications: 1. [facility] at [address] in [place] has a medication drop box. They accept prescription medications (in pill form) Thursday through Thursday 9:00 a.m. to 5:00 p.m. 2. The [facility] Police Department accepts prescription medications (in pill form only) for disposal year round. Call for more information. 3. Contact the [facility] for the next [facility] sponsored prescription drug collection event. , [id number], or [phone]; Discharge Date/Time: 06/20/21 16:46
[2021-06-20 18:09] LABS: BACTERIAL VAGINOSIS DNA POSITIVE (NEGATIVE); CANDIDA GLABRATA DNA NEGATIVE (NEGATIVE); CANDIDA GROUP DNA NEGATIVE (NEGATIVE); CANDIDA KRUSEI DNA NEGATIVE (NEGATIVE); TRICHOMONAS VAGINALIS DNA NEGATIVE (NEGATIVE)
[2021-06-20 22:42] LABS: CHLAMYDIA TRACHOMATIS DNA NEGATIVE (NEGATIVE); NEISSERIA GONORRHOEAE DNA NEGATIVE (NEGATIVE); TRICHOMONAS VAGINALIS DNA NEGATIVE (NEGATIVE)
--- NOTE | 2021-06-20 22:54 | ED Physician Documentation ---
ED Addendum - Addendum Addendum: 06/20/21 22:52 Gonorrhea and Chlamydia are negative. Patient is positive for bacterial vaginosis. Flagyl was sent to the pharmacy for her. Patient will be notified in the morning by RN. Departure - Departure Disposition: 01 Home, Self Care Clinical Impression: Perianal lesion, Bacterial vaginitis Condition: Good Instructions: STDs, Herpes, ED Herpes Simplex Virus Type 2 Follow-Up: Moe Fowler [Primary Care Provider] - As Needed Prescriptions: metroNIDAZOLE [Flagyl] 500 mg PO BID 7 Days #14 tablet HYDROcod/ACETAM 5/325 [[place] 5/325] 1 - 2 ea PO Q6H PRN #14 tablet PRN Reason: Pain Valacyclovir HCl [Valtrex] 1,000 mg PO BID #20 tablet Lidocaine Ointment 5% [Xylocaine Ointment 5%] 1 applic TOP QID PRN #35.44 gm PRN Reason: rectal pain Comments: Please follow-up with your doctor for further care. You can always check your results on the patient portal in the [facility] website. Your prescriptions were sent to [facility] in [place]. Please return if you worsen. I am prescribing a short course of narcotic pain medication for you. These are potentially dangerous and addictive medications that should be used carefully. These medications may constipate you. Take an ypug-ytn-rknheaj stool softener (docusate) twice daily with plenty of water while taking these medications. If you go 24 hours without a bowel movement, take wgtu-alz-diiysxe miralax, per package instructions. Do not drink or drive while taking these medications. If you received narcotic or sedating medications while in the emergency department, do not drive for 24 hours. Store this medication in a safe, secure place and out of reach of children. It is a violation of federal law to give or sell this medication to another person or to use in a manner other than prescribed. The ED will not refill narcotic prescriptions, including prescriptions lost or stolen. To dispose of unwanted medications: 1. [facility] at [address] [facility] in [place] has a medication drop box. They accept prescription medications (in pill form) Thursday through Thursday 9:00 a.m. to 5:00 p.m. 2. The [facility] Police Department accepts prescription medications (in pill form only) for disposal year round. Call for more information. 3. Contact the [facility] for the next [facility] sponsored prescription drug collection event. , [phone], or [phone]; Discharge Date/Time: 06/20/21 16:46
== END 2021-06-20 16:46 | disposition home or self-care (01) ==
LOC: ED 15:37
DX: K62.9 Disease of anus and rectum, unspecified (principal)
CPT/HCPCS: 87252; 87491; 87591; 87661; 87801; 99282; 99283

== ENCOUNTER 2021-12-23 13:46 | Emergency (ER) | payer MEDICAID ==
[2021-12-23 14:06] VITALS: BP 111/56
[2021-12-23 14:33] LABS: BILIRUBIN,URINE NEGATIVE (NEGATIVE); GLUCOSE, URINE (UA) NEGATIVE (NEGATIVE); KETONES,URINE (UA) NEGATIVE (NEGATIVE); LEUKOCYTE ESTERASE, URINE NEGATIVE (NEGATIVE); NITRITE,URINE NEGATIVE (NEGATIVE); OCCULT BLOOD,URINE NEGATIVE (NEGATIVE); PROTEIN,URINE TRACE mg/dL (NEGATIVE); UROBILINOGEN,URINE 0.2 (NORMAL) E.U./dL (NORMAL)
[2021-12-23 14:37] LABS: CLARITY,URINE CLEAR (CLEAR)
[2021-12-23 14:38] LABS: HCG UR QUAL NEGATIVE
--- NOTE | 2021-12-23 15:28 | ED Physician Documentation ---
History of Present Illness - Stated complaint Stated Complaint: FEMALE - Chief complaint Chief Complaint: UTI - History obtained from History obtained from: Patient - History of Present Illness Timing: Today Pain level max: 3 Pain level now: 3 - Additonal information Additional information: Patient is a 31-year-old female who presents to the emergency department complaining of several days of lower abdominal pain and cramping. Urinary frequency and urgency. Concerned about potential IUD dislodgment during intercourse. Nothing seems to make it better or worse. 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 : None HEENT: Other Psych: None Musculoskeletal: None Derm: Eczema, Psoriasis - Past Surgical History Past Surgical History: Yes HEENT: Myringotomy (tubes) - Present Medications Home Medications: Ambulatory Orders Medication Instructions Recorded Confirmed Levonorgestrel [Mirena] 1 each IY UD 12/05/17 06/17/21 Acyclovir 400 mg PO TID #21 tablet 06/17/21 Escitalopram [Lexapro] 20 mg PO DAILY 06/17/21 06/17/21 HYDROcod/ACETAM 5/325 [[place] 5/325] 1 - 2 ea PO Q6H PRN #14 tablet 06/20/21 Lidocaine Ointment 5% [Xylocaine 1 applic TOP QID PRN #35.44 gm 06/20/21 Ointment 5%] Valacyclovir HCl [Valtrex] 1,000 mg PO BID #20 tablet 06/20/21 metroNIDAZOLE [Flagyl] 500 mg PO BID 7 Days #14 tablet 06/20/21 - Allergies Allergies/Adverse Reactions: Allergies Allergy/AdvReac Type Severity Reaction Status Date / Time No Known Drug Allergies Allergy Verified 12/23/21 14:06 - Social History Does the pt smoke?: No Smoking Status: Never smoker Does the pt drink ETOH?: No Does the pt have substance abuse?: No - Immunizations Immunizations are current?: No Immunizations: TDAP >10years/unknown - POLST Patient has POLST: No PD ED PE NORMAL - Vitals Vital signs reviewed: Yes - General General: Alert and oriented X 3, No acute distress - HEENT HEENT: Moist mucous membranes - Neck Neck: Supple, no meningeal sign - Cardiac Cardiac: RRR - Respiratory Respiratory: No respiratory distress, Clear bilaterally - Abdomen Abdomen: Soft, Non tender, Non distended - Female Female : Pt declined - Derm Derm: Warm and dry - Neuro Neuro: Alert and oriented X 3 - Psych Psych: Normal mood, Normal affect Results - Vitals Vitals: Vital Signs - 24 hr 12/23/21 12/23/21 12/23/21 14:01 14:06 15:51 Temperature 36.8 C 36.8 C 36.8 C Heart Rate 68 68 68 Respiratory 16 16 16 Rate Blood Pressure 111/56 L 111/56 L 111/56 L O2 Saturation 100 100 100 Oxygen O2 Source Room air - Labs Labs: Laboratory Tests 12/23/21 12/23/21 12/23/21 14:14 15:20 15:20 Urine Color YELLOW Urine Clarity CLEAR Urine pH 8.0 H Ur Specific [place] 1.015 Urine Protein TRACE Urine Glucose (UA) NEGATIVE Urine Ketones NEGATIVE Urine Occult Blood NEGATIVE Urine Nitrite NEGATIVE Urine Bilirubin NEGATIVE Urine Urobilinogen 0.2 (NORMAL) Ur Leukocyte Esterase NEGATIVE Ur Microscopic Review NOT INDICATED Urine Culture Comments NOT INDICATED Urine HCG, Qual NEGATIVE C. glabrata (PCR) NEGATIVE C. krusei (PCR) NEGATIVE Caro species DNA NEGATIVE Chlam trachomat DNA PCR NEGATIVE N.gonorrhoeae DNA (PCR) NEGATIVE T. vaginalis (PCR) NEGATIVE TNP Bact Vaginosis (PCR) NEGATIVE PD MEDICAL DECISION MAKING - ED course Complexity details: reviewed results, re-evaluated patient, considered differential, d/w patient ED course: Bacterial vaginitis, STD, urinalysis panels are all negative. Unclear etiology of her symptoms. Bedside ultrasound reveals a IUD with normal placement inside the uterus. Patient states she does have diarrhea, possible that she just has cramping from the diarrhea. We will continue supportive care and have her follow-up closely with her doctor. She will return if she worsens. Patient counseled regarding signs and symptoms for which I believe and urgent re- evaluation would be necessary. Patient with good understanding of and agreement to plan and is comfortable going home at this time This document was made in part using voice recognition software. While efforts are made to proofread this document, sound alike and grammatical errors may occur. Patient was called and informed of her negative test results. Departure - Departure Disposition: 01 Home, Self Care Clinical Impression: Pelvic pain in female Condition: Good Instructions: ED Pelvic Pain [facility] Follow-Up: Moe Fowler [Primary Care Provider] - Comments: Please follow-up with your doctor for further care. Return if you worsen. Your urinalysis is normal. I will call you later today with the results of your bacterial vaginitis swab as well as the STD testing when it is available. Your IUD appears to be in a normal position based on your ultrasound today Forms: Activity restrictions Discharge Date/Time: 12/23/21 15:51
[2021-12-23 17:15] LABS: BACTERIAL VAGINOSIS DNA NEGATIVE (NEGATIVE); CANDIDA GLABRATA DNA NEGATIVE (NEGATIVE); CANDIDA GROUP DNA NEGATIVE (NEGATIVE); CANDIDA KRUSEI DNA NEGATIVE (NEGATIVE); TRICHOMONAS VAGINALIS DNA NEGATIVE (NEGATIVE)
[2021-12-23 18:35] LABS: CHLAMYDIA TRACHOMATIS DNA NEGATIVE (NEGATIVE); NEISSERIA GONORRHOEAE DNA NEGATIVE (NEGATIVE)
== END 2021-12-23 15:51 | disposition home or self-care (01) ==
LOC: ED 13:46
DX: R10.2 Pelvic and perineal pain (principal); Z97.5 Presence of (intrauterine) contraceptive device
CPT/HCPCS: 81001; 81003; 81025; 81514; 87086; 87491; 87591; 87661; 99282; 99283

== ENCOUNTER 2022-05-05 18:09 | Emergency (ER) | payer OTHER, MEDICAID ==
[2022-05-05 18:20] VITALS: BP 112/95
--- OUTSIDE RECORDS SUMMARY | 2022-05-05 18:33 | EXTERNAL MEDICAL SUMMARY RPT | Continuity of Care Document ---
:1990 Author Organization [facility] Address [address] [place] [address] Phone Care Team Providers Name Role Phone Moe Fowler Unavailable Unavailable Allergies and Intolerances date description facility type (no date) No Known Drug Allergies [facility] ([facility]kn own) Encounters No information. Functional Status No information. Immunizations No information. Medications No information. Problems date description facility 2022-03-06 00:00 Patient left before evaluation by [facility] Procedures date description facility 2022-03-06 00:00 X-ray of chest, two views [facility] Results/Labs test date author facility value unit interpret ation Result panel 1 (unknown) (no [facility] Result panel 2 (unknown) (no date) (unknown[facility] Result panel 3 (unknown) (no date) (unknown[facility] Result panel 4 (unknown) (no date) (unknown[facility]) Result panel 5 (unknown) (no date) (unknown[facility] Result panel 6 (unknown) (no date) (unknown[facility]) Result panel 7 (unknown) (no date) (unknown[facility] Result panel 8 (unknown) (no date) (unknown[facility] Result panel 9 (unknown) (no date) (unknown[facility]) Result panel 10 (unknown) (no date) (unknown[facility]) Result panel 11 (unknown) (no date) (unknown) [facility]) Result panel 12 (unknown) (no date) (unknown) [facility]) Result panel 13 (unknown) (no date) (unknown) [facility]) Result panel 14 (unknown) (no date) (unknown) [facility]) Result panel 15 (unknown) (no date) (unknown) [facility]) Result panel 16 (unknown) (no date) (unknown) [facility]) Result panel 17 (unknown) (no date) (unknown) [facility] Result panel 18 (unknown) (no date) (unknown) [facility]) Result panel 19 (unknown) (no date) (unknown) [facility]) Result panel 20 (unknown) (no date) (unknown) [facility]) Result panel 21 (unknown) (no date) (unknown) [facility]) Result panel 22 (unknown) (no date) (unknown) [facility]) Result panel 23 (unknown) (no date) (unknown) [facility] Result panel 24 (unknown) (no date) (unknown) [facility]) Result panel 25 (unknown) (no date) (unknown) [facility] Result panel 26 (unknown) (no date) (unknown) [facility]) Result panel 27 (unknown) (no date) (unknown) [facility]) Result panel 28 (unknown) (no date) (unknown) [facility]) Result panel 29 (unknown) (no date) (unknown) [facility]) Result panel 30 (unknown) (no date) (unknown) [facility]) Result panel 31 (unknown) (no date) (unknown) [facility]) Result panel 32 (unknown) (no date) (unknown) [facility]) Result panel 33 (unknown) (no date) (unknown) [facility]) Result panel 34 (unknown) (no date) (unknown) [facility]) Result panel 35 (unknown) (no date) (unknown) [facility]) Result panel 36 (unknown) (no date) (unknown) [facility]) Result panel 37 (unknown) (no date) (unknown) [facility]) Result panel 38 (unknown) (no date) (unknown) [facility]) Result panel 39 (unknown) (no date) (unknown) [facility]) Result panel 40 (unknown) (no date) (unknown) [facility]) Result panel 41 (unknown) (no date) (unknown) [facility]) Result panel 42 (unknown) (no date) (unknown) [facility]) Result panel 43 (unknown) (no date) (unknown) [facility]) Result panel 44 (unknown) (no date) (unknown) [facility]) Result panel 45 (unknown) (no date) (unknown) [facility]) Result panel 46 (unknown) (no date) (unknown) [facility]) Result panel 47 (unknown) (no date) (unknown) [facility]) Result panel 48 (unknown) (no date) (unknown) [facility]) Result panel 49 (unknown) (no date) (unknown) [facility]) Result panel 50 (unknown) (no date) (unknown) [facility]) Result panel 51 (unknown) (no date) (unknown) [facility]) Result panel 52 (unknown) (no date) (unknown) [facility]) Result panel 53 (unknown) (no date) (unknown) [facility] Result panel 54 (unknown) (no date) (unknown) (unknown) Flu A (units (unkn own) NEGATIVE unknown) (unknown) (no date) (unknown) (unknown) Flu B (units (unkn own) NEGATIVE unknown) (unknown) (no date) (unknown) (unknown) Negative (units (unkn own) unknown) (unknown) (no date) (unknown) (unknown) Negative (units (unkn own) unknown) Social History date description facility 2022-03-06 00:00 Never smoked tobacco ([facility]) [facility] Vital Signs date measurement value units 2022-03-06 00:00 BMI 26.1 kg/m2 2022-03-06 00:00 BP_diastolic 56 mmHg 2022-03-06 00:00 BP_systolic 119 mmHg 2022-03-06 00:00 heart_rate 75 /min 2022-03-06 00:00 height_metric 165.1 cm 2022-03-06 00:00 height_standard 65 in 2022-03-06 00:00 o2_saturation 98 % 2022-03-06 00:00 respiration_rate 18 /min 2022-03-06 00:00 temperature_metric 37.5 C 2022-03-06 00:00 temperature_standard 99.5 F 2022-03-06 00:00 weight_metric 71.21 kg 2022-03-06 00:00 weight_standard 156.99 lb
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
== END 2022-05-05 18:45 | disposition home or self-care (01) ==
LOC: ED 18:09
DX: T20.10XA Burn of first degree of head, face, and neck, unspecified site, initial encounter (principal); Y27.2XXA Contact with hot fluids, undetermined intent, initial encounter
CPT/HCPCS: 1040M; 99281; 99282

== ENCOUNTER 2022-10-27 16:07 | Emergency (ER) | payer MEDICAID ==
[2022-10-27 16:48] LABS: BILIRUBIN,URINE NEGATIVE (NEGATIVE); GLUCOSE, URINE (UA) NEGATIVE (NEGATIVE); KETONES,URINE (UA) NEGATIVE (NEGATIVE); LEUKOCYTE ESTERASE, URINE NEGATIVE (NEGATIVE); NITRITE,URINE NEGATIVE (NEGATIVE); OCCULT BLOOD,URINE TRACE-INTA (NEGATIVE); PH,URINE 5.5 PH (5.0-7.5); PROTEIN,URINE NEGATIVE (NEGATIVE); UROBILINOGEN,URINE 0.2 (NORMAL) E.U./dL (NORMAL)
--- NOTE | 2022-10-27 16:50 | ED Physician Documentation ---
History of Present Illness - Stated complaint Stated Complaint: FEMALE GI - Chief complaint Chief Complaint: Abd Pain - Additonal information Additional information: 32-year-old female presents emergency department for evaluation of several weeks watery stools now turning black. She states that for about 3 weeks she has been having dark green watery stools about 5 a day. She did take some Pepto-Bismol last night but states that for the last 2 days her stools have been black. She has had no fevers no nausea or vomiting. She does endorse some generalized abdominal discomfort and bloating. No dysuria. States that she had a similar occurrence of persistent diarrhea several years ago that self resolved after about a week. Patient has no history of recent travel. No similar in family at home. No recent antibiotics. She does not drink well water. She took ibuprofen once over the last several weeks for headache but does not consistently use NSAID medication. Past medical history most significant for anxiety and depression for which she is on Lexapro and as needed Xanax. Review of Systems Constitutional: denies: Fever Throat: reports: Reviewed and negative Cardiac: reports: Reviewed and negative Respiratory: reports: Reviewed and negative GI: reports: Abdominal Pain, Diarrhea, Bloody / black stool. denies: Nausea, Vomiting : reports: Reviewed and negative Skin: reports: Reviewed and negative Musculoskeletal: reports: Reviewed and negative PD PAST MEDICAL HISTORY - Past Medical History Past Medical History: Yes Cardiovascular: None Respiratory: Asthma Neuro: Migraines, Tremors Endocrine/Autoimmune: None GI: GERD, Ulcers REPLANTER: Miscarriage(s) : None HEENT: Other Psych: Depression, Anxiety Musculoskeletal: None Derm: Eczema, Psoriasis Other Past Medical History: PCOS - Past Surgical History Past Surgical History: Yes HEENT: Myringotomy (tubes) - Present Medications Home Medications: Ambulatory Orders Medication Instructions Recorded Confirmed Levonorgestrel [Mirena] 1 each IY UD 12/05/17 10/27/22 Escitalopram [Lexapro] 20 mg PO DAILY 06/17/21 10/27/22 Alprazolam [Xanax] 1 mg PO Q8HR PRN 10/27/22 10/27/22 Azithromycin [Zithromax] 500 mg PO DAILY 3 Days #6 tablet 10/27/22 - Allergies Allergies/Adverse Reactions: Allergies Allergy/AdvReac Type Severity Reaction Status Date / Time No Known Drug Allergies Allergy Verified 10/27/22 16:13 - Social History Does the pt smoke?: No Smoking Status: Never smoker Does the pt drink ETOH?: No Does the pt have substance abuse?: No - Immunizations Immunizations are current?: No Immunizations: TDAP >10years/unknown - POLST Patient has POLST: No PD ED PE NORMAL - General General: Alert and oriented X 3, No acute distress, Well developed/nourished - HEENT HEENT: Atraumatic, Moist mucous membranes - Neck Neck: Supple, no meningeal sign - Cardiac Cardiac: RRR, No murmur - Respiratory Respiratory: No respiratory distress, Clear bilaterally - Abdomen Abdomen: Normal bowel sounds, Soft. No: Non tender (Some mild generalized a bdominal tenderness right greater than left. Normal bowel sounds. No percussion tenderness.) - Rectal Rectal: Other (Attempted digital rectal exam with tube carrier, no stool in vault to send for guaiac) - Back Back: No CVA TTP - Derm Derm: Normal color, Warm and dry, No rash - Extremities Extremities: No deformity - Neuro Neuro: Alert and oriented X 3 Eye Opening: Spontaneous Motor: Obeys Commands Verbal: Oriented GCS Score: 15 Results - Vitals Vitals: Vital Signs - 24 hr 10/27/22 10/27/22 16:13 17:19 Temperature 36.6 C Heart Rate 73 Respiratory 18 Rate Blood Pressure 102/64 105/40 L O2 Saturation 99 Oxygen O2 Source Room air - Labs Labs: Microbiology 10/27/22 17:45 Occult Blood - Final Stool Laboratory Tests 10/27/22 10/27/22 10/27/22 16:20 16:40 16:50 WBC 7.0 RBC 4.32 Hgb 12.7 Hct 39.6 MCV 91.7 MCH 29.4 MCHC 32.1 RDW 12.4 Plt Count 283 MPV 10.8 Neut # (Auto) 4.2 Lymph # (Auto) 2.0 [place] # (Auto) 0.7 Eos # (Auto) 0.1 Baso # (Auto) 0.0 Absolute Nucleated RBC 0.00 Nucleated RBC % 0.0 PT 12.2 INR 1.1 Sodium Potassium Chloride Carbon Dioxide Anion Gap BUN Creatinine Estimated GFR (MDRD) Glucose Calcium Total Bilirubin AST ALT Alkaline Phosphatase Total Protein Albumin Globulin Albumin/Globulin Ratio Lipase Urine Color YELLOW Urine Clarity CLEAR Urine pH 5.5 Ur Specific [place] 1.025 Urine Protein NEGATIVE Urine Glucose (UA) NEGATIVE Urine Ketones NEGATIVE Urine Occult Blood TRACE-INTA Urine Nitrite NEGATIVE Urine Bilirubin NEGATIVE Urine Urobilinogen 0.2 (NORMAL) Ur Leukocyte Esterase NEGATIVE Ur Microscopic Review NOT INDICATED Urine Culture Comments NOT INDICATED Urine HCG, Qual NEGATIVE 10/27/22 16:50 WBC RBC Hgb Hct MCV MCH MCHC RDW Plt Count MPV Neut # (Auto) Lymph # (Auto) [place] # (Auto) Eos # (Auto) Baso # (Auto) Absolute Nucleated RBC Nucleated RBC % PT INR Sodium 139 Potassium 3.8 Chloride 106 Carbon Dioxide 28 Anion Gap 5.0 L BUN 10 Creatinine 0.5 Estimated GFR (MDRD) 145 Glucose 95 Calcium 8.6 Total Bilirubin 0.5 AST 17 ALT 13 Alkaline Phosphatase 67 Total Protein 7.5 Albumin 4.2 Globulin 3.3 Albumin/Globulin Ratio 1.3 Lipase 25 Urine Color Urine Clarity Urine pH Ur Specific [place] Urine Protein Urine Glucose (UA) Urine Ketones Urine Occult Blood Urine Nitrite Urine Bilirubin Urine Urobilinogen Ur Leukocyte Esterase Ur Microscopic Review Urine Culture Comments Urine HCG, Qual - Rads (name of study) Ct abd Relevant Findings:: Final report received (Liquid stool in the colon suggestive of enteritis. No wall thickening or inflammatory changes suggest colitis. Anteverted and anteflexed uterus containing an IUD) PD Medical Decision Making - ED course Complexity details: reviewed results, re-evaluated patient, considered differential, d/w patient ED course: 32-year-old female presents emergency department for evaluation of 3 weeks persistent diarrhea. Patient is reporting 5 liquid stools a day. Mostly dark green though over the last 2 days she describes them as black. She has had no fevers. No recent antibiotic use travel or similar illness and others at home. She is on community water not a well. Here in the emergency department she presents very well-appearing without fever. Benign abdominal exam. Did obtain CBC, electrolytes and urinalysis. Per my interpretation no acute worrisome findings. A stool sample was sent for C. difficile which is still pending. Stool guaiac was negative. I suspect that the black stool color was secondary to Pepto- Bismol use. Patient has been using Pepto-Bismol and a single dose of Imodium as well as activity but the diarrhea has not improved. CT showed findings suggestive of enteritis but nothing to suggest a colitis. At this point given 3 weeks duration and otherwise well appearance its reasonable to consider a short course of antibiotics for treatment of the diarrhea. As such she will be prescribed a 3-day course of azithromycin. I have advised her to follow closely with her PCP. If the diarrhea continues she may benefit from referral to GI for colonoscopy. At present she appears well without findings of dehydration or electrolyte imbalance. She is stable for discharge home with usual emergent return precautions discussed Departure - Departure Disposition: Home, Self Care Clinical Impression: Diarrhea Condition: Stable Record reviewed to determine appropriate education?: Yes Prescriptions: Azithromycin [Zithromax] 500 mg PO DAILY 3 Days #6 tablet Comments: You have been having diarrhea for several weeks. Today in the emergency department your CBC electrolytes and urinalysis were all entirely normal. You are not dehydrated. CT of the abdomen Did not show anything to suggest a colitis. However because you have been attempting reasonable treatment for the diarrhea with a few doses of Pepto-Bismol, use of Activia for lactobacillus it is reasonable to consider a short course of antibiotics. A prescription for azithromycin has been sent to the [facility] in [place]. You will take this every day for the next 3 days. I would like you to continue to hydrate the way you are. Please buy some lact obacillus tablets [id number] and take these twice a day. If despite the antibiotics you are symptoms do not improve, they severely worsen, you have fevers then you should return immediately to the ER. However I would like you to discuss this ED visit with your primary doctor to determine if you would benefit from referral to GI for a colonoscopy.
[2022-10-27 16:51] LABS: CLARITY,URINE CLEAR (CLEAR); HCG UR QUAL NEGATIVE
[2022-10-27 16:56] LABS: BASOPHILS % (AUTO) 0.4 %; EOSINOPHILS # (AUTO) 0.1 10^3/uL (0.0-0.7); HCT - HEMATOCRIT 39.6 % (37.0-47.0); HGB - HEMOGLOBIN 12.7 g/dL (12.0-16.0); MEAN CORPUSCULAR HEMOGLOBIN 29.4 pg (27.0-31.0); MEAN CORPUSCULAR HGB CONC 32.1 g/dL (32.0-36.0); MEAN CORPUSCULAR VOLUME 91.7 fL (81.0-99.0); MEAN PLATELET VOLUME 10.8 fL (7.9-10.8); MONOCYTES # (AUTO) 0.7 10^3/uL (0.0-1.0); MONOCYTES % (AUTO) 10.6 %; NEUTROPHILS # (AUTO) 4.2 10^3/uL (1.5-6.6); NEUTROPHILS % (AUTO) 59.7 %; PLT - PLATELET COUNT 283 10^3/uL (130-450); RED BLOOD COUNT 4.32 10^6/uL (4.20-5.40); RED CELL DISTRIBUTION WIDTH 12.4 % (12.0-15.0)
[2022-10-27 17:10] LABS: ALBUMIN 4.2 g/dL (3.2-5.5); ALBUMIN/GLOBULIN RATIO 1.3 (1.0-2.2); BILIRUBIN,TOTAL 0.5 mg/dL (0.2-1.0); CALCIUM 8.6 mg/dL (8.5-10.3); CREATININE 0.5 mg/dL (0.4-1.0); POTASSIUM 3.8 mmol/L (3.5-5.0); TOTAL PROTEIN 7.5 g/dL (6.7-8.2)
[2022-10-27] MEDS ORDERED: iohexoL-300 100 ML VIAL ONE (17:16)
[2022-10-27 17:22] LABS: INR 1.1 (0.8-1.2); PT - PROTHROMBIN TIME 12.2 secs (9.9-12.6)
[2022-10-27] MEDS ORDERED: iohexoL-300 100 ML VIAL IVP ONE (17:48)
--- NOTE | 2022-10-27 18:34 | CT Report ---
PROCEDURE: ABDOMEN/PELVIS W INDICATIONS: diarrhea X3 weeks CONTRAST: Omni 300 100ml TECHNIQUE: After the administration of intravenous contrast, 5 mm thick sections acquired from the diaphragms to the symphysis. 5 mm thick coronal and sagittal reformats were acquired. For radiation dose reducti on, the following was used: automated exposure control, adjustment of mA and/or kV according to heber ent size. COMPARISON: 11/06/2014 FINDINGS: Image quality: Excellent. Lung bases and heart: Unremarkable. Liver: No solid mass. Gallbladder and biliary tree: No calcifications or wall thickening. Biliary tree is nondilated. Spleen: No splenomegaly. Pancreas: No pancreatic ductal dilation. Adrenals: No adrenal nodule. Kidneys and ureters: No hydronephrosis. No renal cystic lesion which requires follow up. No solid mas s. No hydroureter. Bowel and peritoneum: There is liquid stool in the colon. No: Wall thickening to suggest acute coliti s. Distal colon and rectum are in spasm. The appendix was not seen though there are no right lower qu adrant inflammatory changes. Small bowel is not obstructed. Trace fluid in the cul-de-sac. No free in traperitoneal air. Lymph nodes: No central or retroperitoneal adenopathy. Several normal caliber right lower quadrant ly mph nodes are seen in the mesentery. Vessels: No infrarenal aortic aneurysm. PELVIS Reproductive organs: Anteverted anteflexed uterus contains an IUD in the expected location. Ovaries a re not well seen by CT. No suspicious adnexal masses. Bladder: Decompressed. Pelvic lymph nodes: No pelvic adenopathy by size criteria. Bones: No aggressive osseous abnormality. Other: No significant ventral or inguinal hernia. IMPRESSION: 1. Liquid stool in the colon suggestive of enteritis. No wall thickening or inflammatory change to michael ggest colitis. 2. Anteverted and anteflexed uterus containing an IUD. Reviewed by: Susana Stout MD on 10/27/2022 5:32 PM ANGELA Approved by: Susana Stout MD on 10/27/2022 5:32 PM AKJARED Station ID: [id number]
[2022-10-27 19:02] VITALS: BP 101/50
== END 2022-10-27 18:55 | disposition home or self-care (01) ==
LOC: ED 16:07
DX: R19.7 Diarrhea, unspecified (principal)
CPT/HCPCS: 36415; 74177; 80053; 81003; 81025; 82272; 83690; 85025; 85610; 87045; 87046; 87427; 87493; 99284; Q9967; 81001; 87086

== ENCOUNTER 2022-12-23 19:32 | Emergency (ER) | payer MEDICAID ==
[2022-12-23 19:43] VITALS: O2SAT 100
[2022-12-23 20:04] LABS: BASOPHILS % (AUTO) 0.3 %; EOSINOPHILS # (AUTO) 0.1 10^3/uL (0.0-0.7); EOSINOPHILS % (AUTO) 1.1 %; HCT - HEMATOCRIT 39.8 % (37.0-47.0); LYMPHOCYTES # (AUTO) 2.1 10^3/uL (1.5-3.5); LYMPHOCYTES % (AUTO) 23.4 %; MEAN CORPUSCULAR HEMOGLOBIN 30.4 pg (27.0-31.0); MEAN CORPUSCULAR HGB CONC 32.7 g/dL (32.0-36.0); MEAN PLATELET VOLUME 10.9 fL (7.9-10.8); MONOCYTES # (AUTO) 1.2 10^3/uL (0.0-1.0); MONOCYTES % (AUTO) 13.3 %; NEUTROPHILS # (AUTO) 5.5 10^3/uL (1.5-6.6); NEUTROPHILS % (AUTO) 61.7 %; PLT - PLATELET COUNT 273 10^3/uL (130-450); RED BLOOD COUNT 4.28 10^6/uL (4.20-5.40); RED CELL DISTRIBUTION WIDTH 12.7 % (12.0-15.0)
[2022-12-23 20:05] LABS: BILIRUBIN,URINE NEGATIVE (NEGATIVE); GLUCOSE, URINE (UA) NEGATIVE (NEGATIVE); KETONES,URINE (UA) NEGATIVE (NEGATIVE); LEUKOCYTE ESTERASE, URINE NEGATIVE (NEGATIVE); NITRITE,URINE NEGATIVE (NEGATIVE); OCCULT BLOOD,URINE SMALL (NEGATIVE); PH,URINE 6.5 PH (5.0-7.5); PROTEIN,URINE TRACE mg/dL (NEGATIVE); UROBILINOGEN,URINE 0.2 (NORMAL) E.U./dL (NORMAL)
[2022-12-23 20:09] LABS: CLARITY,URINE HAZY (CLEAR); HCG UR QUAL NEGATIVE
[2022-12-23 20:23] LABS: ALBUMIN 4.4 g/dL (3.2-5.5); ALBUMIN/GLOBULIN RATIO 1.5 (1.0-2.2); BILIRUBIN,TOTAL 0.2 mg/dL (0.2-1.0); CALCIUM 9.1 mg/dL (8.5-10.3); CREATININE 0.5 mg/dL (0.6-1.3); POTASSIUM 3.6 mmol/L (3.5-4.5); TOTAL PROTEIN 7.3 g/dL (6.4-8.9)
[2022-12-23 20:27] LABS: BACTERIA,URINE Moderate /HPF (None Seen); SQUAMOUS EPITHELIAL CELL,UR MANY Squamous (<= Few); WBC,URINE 0-3 /HPF (0-5)
[2022-12-23] MEDS ORDERED: KETOROLAC 30 MG/ML VIAL IVP STA (20:28)
[2022-12-23] MEDS ORDERED: DICYCLOMINE 10 MG CAPSULE PO STA (20:45)
--- NOTE | 2022-12-23 20:57 | ED Physician Documentation ---
PD HPI ABD PAIN - Stated complaint Stated Complaint: ABD PX,GI - Chief complaint Chief Complaint: Abd Pain - History obtained from History obtained from: Patient - Additional information Additional information: HPI from patient. Patient complains of diarrhea and abdominal pain. 2 mornings ago, patient had onset of diarrhea which has persisted since onset, becoming associated with upper abdominal pain, predominantly epigastric and right upper quadrant, since this morning. She describes the pain as varying between sharp at times, other times a cramping sensation. She was treated and released from this emergency department 10/27/2022 (2 months ago) with a work-up that did not result in a specific diagnosis; liquid stool on CT, at that time, was suggestive of enteritis, and she was given a prescription for 3 days of Zithromax. Patient says she has had other, similar episodes of diarrhea and abdominal pain prior to this previous visit, but previous episodes were milder and self-limited and thus she did not seek any medical attention for any previous episodes until this past October. She is working on arranging follow-up with lead sustainability specialist through referral from PCP. Patient denies fever, denies nausea/vomiting. Denies bloody stool, denies dark black, tarry stool. There are no exacerbating or ameliorating factors regarding her symptoms. This includes p.o. intake (does not change symptoms). Review of Systems Constitutional: reports: Reviewed and negative GI: reports: Abdominal Pain, Diarrhea. 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(s) : None HEENT: Other Psych: Depression, Anxiety Musculoskeletal: None Derm: Eczema, Psoriasis - Past Surgical History Past Surgical History: Yes HEENT: Myringotomy (tubes) - Present Medications Home Medications: Ambulatory Orders Medication Instructions Recorded Confirmed Levonorgestrel [Mirena] 1 each IY UD 12/05/17 10/27/22 Escitalopram [Lexapro] 20 mg PO DAILY 06/17/21 10/27/22 Alprazolam [Xanax] 1 mg PO Q8HR PRN 10/27/22 10/27/22 Azithromycin [Zithromax] 500 mg PO DAILY 3 Days #6 tablet 10/27/22 Dicyclomine HCl 10 mg PO TID PRN #20 cap 12/24/22 oxyCODONE [Roxicodone] 5 - 10 mg PO Q6H PRN #14 tablet 12/24/22 - Allergies Allergies/Adverse Reactions: Allergies Allergy/AdvReac Type Severity Reaction Status Date / Time No Known Drug Allergies Allergy Verified 10/27/22 16:13 - Social History Does the pt smoke?: No Smoking Status: Never smoker Does the pt drink ETOH?: No Does the pt have substance abuse?: No - Immunizations Immunizations are current?: No Immunizations: TDAP >10years/unknown - POLST Patient has POLST: No PD ED PE NORMAL - Vitals Vital signs reviewed: Yes - General General: Alert and oriented X 3, No acute distress, Well developed/nourished - Cardiac Cardiac: RRR, No murmur - Respiratory Respiratory: No respiratory distress, Clear bilaterally - Abdomen Abdomen: Soft, Non distended - Back Back: No CVA TTP PD ED PE EXPANDED - Abdomen Abdomen: Normal Bowel sounds, Tender to palpation (epigastric>RUQ TTP without rebound or guarding). No: Rebound, Guarding Results - Vitals Vitals: Vital Signs - 24 hr 12/23/22 12/23/22 12/23/22 19:34 19:51 22:49 Temperature 36.7 C 37 C 36.4 C L Heart Rate 76 75 72 Respiratory 18 17 14 Rate Blood Pressure 116/66 115/67 124/73 O2 Saturation 100 100 100 12/24/22 01:04 Temperature 37 C Heart Rate 83 Respiratory 17 Rate Blood Pressure 134/78 H O2 Saturation 100 Oxygen O2 Source Room air - Labs Labs: Laboratory Tests 12/23/22 12/23/22 12/23/22 19:50 19:58 19:58 WBC 9.0 RBC 4.28 Hgb 13.0 Hct 39.8 MCV 93.0 MCH 30.4 MCHC 32.7 RDW 12.7 Plt Count 273 MPV 10.9 H Neut # (Auto) 5.5 Lymph # (Auto) 2.1 [place] # (Auto) 1.2 H Eos # (Auto) 0.1 Baso # (Auto) 0.0 Absolute Nucleated RBC 0.00 Nucleated RBC % 0.0 Sodium 138 Potassium 3.6 Chloride 107 Carbon Dioxide 27 Anion Gap 4.0 L BUN 11 Creatinine 0.5 L Estimated GFR (MDRD) 145 Glucose 112 H Calcium 9.1 Total Bilirubin 0.2 AST 13 ALT 9 L Alkaline Phosphatase 75 Total Protein 7.3 Albumin 4.4 Globulin 2.9 Albumin/Globulin Ratio 1.5 Lipase 20 Urine Color YELLOW Urine Clarity HAZY Urine pH 6.5 Ur Specific [employer] 1.025 Urine Protein TRACE Urine Glucose (UA) NEGATIVE Urine Ketones NEGATIVE Urine Occult Blood SMALL H Urine Nitrite NEGATIVE Urine Bilirubin NEGATIVE Urine Urobilinogen 0.2 (NORMAL) Ur Leukocyte Esterase NEGATIVE Urine RBC 6-10 H Urine WBC 0-3 Ur Squamous Epith Cells MANY Squamous H Urine Bacteria Moderate H Ur Microscopic Review INDICATED Urine Culture Comments NOT INDICATED Urine HCG, Qual NEGATIVE Stl C. diff Tox B Gene 12/23/22 20:46 WBC RBC Hgb Hct MCV MCH MCHC RDW Plt Count MPV Neut # (Auto) Lymph # (Auto) [place] # (Auto) Eos # (Auto) Baso # (Auto) Absolute Nucleated RBC Nucleated RBC % Sodium Potassium Chloride Carbon Dioxide Anion Gap BUN Creatinine Estimated GFR (MDRD) Glucose Calcium Total Bilirubin AST ALT Alkaline Phosphatase Total Protein Albumin Globulin Albumin/Globulin Ratio Lipase Urine Color Urine Clarity Urine pH Ur Specific [employer] Urine Protein Urine Glucose (UA) Urine Ketones Urine Occult Blood Urine Nitrite Urine Bilirubin Urine Urobilinogen Ur Leukocyte Esterase Urine RBC Urine WBC Ur Squamous Epith Cells Urine Bacteria Ur Microscopic Review Urine Culture Comments Urine HCG, Qual Stl C. diff Tox B Gene NEGATIVE - Rads (name of study) CT A/P with IV contrast Relevant Findings:: Prelim report reviewed, See rad report PD Medical Decision Making - ED course Complexity details: reviewed old records, reviewed results, re-evaluated patient, considered differential, d/w patient ED course: I reviewed the ED record from the ED visit 10/27/2022, as noted above in HPI. I also note that her stool sample that was provided on that visit subsequently returned negative for the bacteria that were tested (Salmonella, Shigella, E. coli, Campylobacter). On poly's visit, she is given 30mg IV toradol, 20mg PO bentyl. Although there is no rebound or guarding, CT A/P with IV contrast is again undertaken due to significant upper abdominal tenderness to palpation (and considering the previous CT, performed nearly 2 months ago, was not normal). CT A/P is interpreted by the radiologist as "mild segmental bowel wall thickening and enhancement of the terminal ileum with mild associated upstream dilatation compatible with a nonspecific infectious or inflammatory enteritis." Differential includes (though not limited to) IBD (Crohn's disease), infectious process (viral, though doubt bacterial: poly's c diff PCR results negative; I did not perform the biofire GI panel, as this was done two months ago when she was evaluated in this ED for same symptoms, with results of this panel returning negative (as noted above)). Results discussed with patient. She is in NAD, reports relief after receiving the Toradol and dicyclomine, although the discomfort is slowly starting to return. She has an appointment with her primary care provider scheduled for tomorrow (12/24), the purpose of which is to work on referral to GI. She is given a take-Home pack of Percocet (patient is driving), and I have electronically submitted prescriptions for oxycodone and dicyclomine to patient's pharmacy of choice. Return precautions were discussed prior to discharge. I am prescribing a short course of short-acting opioid pain medication for this patient. I have reviewed the patients CHIEF PRIVACY OFFICER and no concerning findings were noted. I have discussed that the opioids are for short term therapy only, and will not be refilled from the ED. Departure - Departure Disposition: 01 Home, Self Care Clinical Impression: Enteritis Condition: Good Instructions: Diarrhea Follow-Up: Moe Fowler [Primary Care Provider] - Prescriptions: Dicyclomine HCl 10 mg PO TID PRN #20 cap PRN Reason: Abdominal Pain oxyCODONE [Roxicodone] 5 - 10 mg PO Q6H PRN #14 tablet PRN Reason: Pain >8 Comments: There were no concerning or diagnostic findings on poly's blood tests. Your CT scan of the abdomen and pelvis shows inflammation of a segment of the small intestine. This finding is consistent with the diagnosis of enteritis. This is not a specific diagnosis, as there are several different potential causes of enteritis, such as inflammatory diseases (such as Crohn's disease) and infections (such as bacteria or viruses). Follow-up with your primary care provider today as scheduled, as follow-up testing and, at your primary care provider's discretion, referral to a specialist such as a lead sustainability specialist, might be helpful. I have electronically submitted prescriptions for oxycodone (opiate/narcotic pain medication) and dicyclomine (antispasmodic medication for the gastrointestinal tract) to the [facility] pharmacy in [place]. Below (within the brackets) is the radiologist's interpretation of your CT scan as well as the test performed on your stool sample tonight. I am including these for the benefit of your follow-up appointment today; you should bring these discharge sheets with you to the appointment and show them to your primary care provider. [Mild segmental bowel wall thickening and enhancement of the terminal ileum with mild associated upstream dilatation compatible with a nonspecific infectious or inflammatory enteritis. C. Diff PCR negative] I am prescribing a short course of narcotic pain medication for you. These are potentially dangerous and addictive medications that should be used carefully. These medications may constipate you. Take an [id number] stool softener (docusate) twice daily with plenty of water while taking these medications. If you go 24 hours without a bowel movement, take dmre-nby-irbprur miralax, per package instructions. Do not drink or drive while taking these medications. If you received narcotic or sedating medications while in the emergency department, do not drive for 24 hours. Store this medication in a safe, secure place and out of reach of children. It is a violation of federal law to give or sell this medication to another person or to use in a manner other than prescribed. The ED will not refill narcotic prescriptions, including prescriptions lost or stolen. To dispose of unwanted medications: 1. [facility] at [address] [facility] in [place] has a medication drop box. They accept prescription medications (in pill form) Thursday through Thursday 9:00 a.m. to 5:00 p.m. 2. The [facility] [employer] accepts prescription medications (in pill form only) for disposal year round. Call for more information. 3. Contact the [facility] for the next [facility] sponsored prescription drug collection event. , [phone], or [phone]; Forms: Activity restrictions Discharge Date/Time: 12/24/22 01:05
--- NOTE | 2022-12-23 23:30 | CT Report ---
PROCEDURE: ABDOMEN/PELVIS W INDICATIONS: abd. pain, TTP (epigastric, RUQ) CONTRAST: 100mL Omni 300 TECHNIQUE: After the administration of intravenous contrast, 5 mm thick sections acquired from the diaphragms to the symphysis. 5 mm thick coronal and sagittal reformats were acquired. For radiation dose reducti on, the following was used: automated exposure control, adjustment of mA and/or kV according to heber ent size. COMPARISON: CT abdomen pelvis 10/27/2022 11/14/2014, 06/28/2014 FINDINGS: Image quality: Excellent. Lung bases: Unremarkable. Heart: Heart is normal in size. ABDOMEN: Liver: No mass lesion. Gallbladder: Within normal limits without calcified gallstones. Biliary ducts: No biliary ductal dilatation. Pancreas: Unremarkable. Spleen: Normal in size. Adrenal Glands: No adrenal nodules. Kidneys and Ureters: No hydronephrosis. Stomach and Bowel:There is mild bowel wall thickening and enhancement of the terminal ileum. There i s mild associated upstream dilatation of the distal ileum. The appendix is normal. Peritoneum:There is a small amount of free fluid in the pelvis which appears within physiologic limi ts. No free air. Ventral Wall: No hernia. Abdominal Nodes: No retroperitoneal or mesenteric adenopathy by size criteria. Vessels: Aorta and inferior vena cava are normal in size. PELVIS: Pelvic Organs:An IUD is redemonstrated within the uterus.There is a right adnexal cyst measuring up to 2.6 cm. A peripherally enhancing cyst in the left ovary measures up to 2.0 cm. Bladder: Unremarkable. Pelvic Nodes: No enlarged lymph nodes. Miscellaneous: No inguinal hernias. Bones: Visualized osseous structures demonstrate no suspicious lesions. IMPRESSION: 1. Mild segmental bowel wall thickening and enhancement of the terminal ileum with mild associated u pstream dilatation compatible with a nonspecific infectious or inflammatory enteritis. Reviewed by: Andrés Aguilar MD on 12/23/2022 11:28 PM PDT Approved by: Andrés Aguilar MD on 12/23/2022 11:28 PM PDT Station ID: [id number]
[2022-12-24] MEDS ORDERED: oxyCODONE/ACET 5/325 Prepack 4 PO STA (00:42)
[2022-12-24 01:07] VITALS: BP 134/78
[2022-12-24] MEDS ORDERED: iohexoL-300 100 ML VIAL IVP ONE (04:45)
== END 2022-12-24 01:05 | disposition home or self-care (01) ==
LOC: SUPCPDRO 19:32 → ED 19:32
DX: K52.9 Noninfective gastroenteritis and colitis, unspecified (principal)
CPT/HCPCS: 36415; 74177; 80053; 81001; 81025; 83690; 85025; 87493; 96374; 99283; 99284; A9270; Q9967; 81003; 87086

== ENCOUNTER 2023-03-13 15:57 | Emergency (ER) | payer MEDICAID ==
--- NOTE | 2023-03-13 16:05 | ED Physician Documentation ---
PD ANNE HEENT - Stated complaint Stated Complaint: EAR PX/COUGH - Chief complaint Chief Complaint: General - History obtained from History obtained from: Patient - History of Present Illness Timing - onset: How many weeks ago (has been ill with sinus congestion and cough and short of breath for 3-4 weeks, persistent. Having right ear pain now for 3 days. Still with cough and it is worsened as well, now productive of purulent sputum.) Timing - details: Gradual onset, Still present Location: Right ear Associated symptoms: Congestion, Cough (with wheezing from her asthma exacerbated. Using MDI with unsustained improvement.). No: Fever Similar symptoms before: Has not had sx before Recently seen: Not recently seen Review of Systems Constitutional: reports: Myalgias. 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 HEENT: Other Psych: Depression, Anxiety Musculoskeletal: None Derm: Eczema, Psoriasis - Past Surgical History Past Surgical History: Yes HEENT: Myringotomy (tubes) - Present Medications Home Medications: Ambulatory Orders Medication Instructions Recorded Confirmed Levonorgestrel [Mirena] 1 each IY UD 12/05/17 03/14/23 Escitalopram [Lexapro] 20 mg PO DAILY 06/17/21 03/14/23 Alprazolam [Xanax] 1 mg PO Q8HR PRN 10/27/22 03/14/23 Azithromycin [Zithromax] 500 mg PO DAILY 3 Days #6 tablet 10/27/22 03/14/23 Dicyclomine HCl 10 mg PO TID PRN #20 cap 12/24/22 03/14/23 oxyCODONE [Roxicodone] 5 - 10 mg PO Q6H PRN #14 tablet 12/24/22 03/14/23 Albuterol Sulf [Ventolin Hfa 2 - 3 puffs INH Q4HR PRN #1 each 03/13/23 03/14/23 Inhaler] Amoxicillin 500 mg PO TID #21 cap 03/13/23 03/14/23 Cetirizine [ZyrTEC] 10 mg PO BID #20 tablet 03/13/23 03/14/23 dexAMETHasone [Decadron] 4 mg PO DAILY #7 tablet 03/13/23 03/14/23 - Allergies Allergies/Adverse Reactions: Allergies Allergy/AdvReac Type Severity Reaction Status Date / Time No Known Drug Allergies Allergy Verified 10/27/22 16:13 - Social History Does the pt smoke?: No Smoking Status: Never smoker Does the pt drink ETOH?: No Does the pt have substance abuse?: No - Immunizations Immunizations are current?: No Immunizations: TDAP >10years/unknown - POLST Patient has POLST: No PD ED PE NORMAL - Vitals Vital signs reviewed: Yes - General General: Alert and oriented X 3, No acute distress, Well developed/nourished - HEENT HEENT: Pharynx benign. No: Ears normal (left is good. Right canal is normal with minimal wax. TM redness and distorted landmarks c/w OM. ) - Neck Neck: Supple, no meningeal sign, No adenopathy - Cardiac Cardiac: RRR, No murmur - Respiratory Respiratory: No respiratory distress. No: Clear bilaterally (no congestion sounds but has end exp wheezing. ) - Derm Derm: Normal color, Warm and dry - Neuro Neuro: Normal speech Results - Vitals Vitals: Oxygen O2 Source Room air PD Medical Decision Making - ED course Complexity details: considered differential (has had prolonged URI symptoms and recovery with persistent congestion and now increased cough and right ear pain. May have a second URI or initial perissting and exac oher asthma. Right TM appears infection now as well. Rx with MDI steroids, abx, and cough med. ), d/w patient Departure - Departure Disposition: 01 Home, Self Care Clinical Impression: Persistent cough Reactive airway disease with wheezing Qualifiers: Asthma severity: mild Asthma persistence: intermittent Asthma complication type: with acute exacerbation Qualified Code(s): J45.21 - Mild intermittent asthma with (acute) exacerbation Otitis media Qualifiers: Otitis media type: suppurative Chronicity: acute Laterality: right Recurrence: non-recurrent Spontaneous tympanic membrane rupture: without spontaneous rupture Qualified Code(s): H66.001 - Acute suppurative otitis media without spontaneous rupture of ear drum, right ear Condition: Stable Record reviewed to determine appropriate education?: Yes Instructions: ED Otitis Media Acute Adult Prescriptions: Albuterol Sulf [Ventolin Hfa Inhaler] 2 - 3 puffs INH Q4HR PRN #1 each PRN Reason: Shortness Of Air/Wheezing Amoxicillin 500 mg PO TID #21 cap dexAMETHasone [Decadron] 4 mg PO DAILY #7 tablet Cetirizine [ZyrTEC] 10 mg PO BID #20 tablet Comments: Stay well-hydrated. Tylenol every 4-6 hours if needed for fevers or pains. Your eardrum does appear red and it looks like a middle ear infection. The ear canal actually is okay with minimal wax. Amoxicillin 3 times daily for a week for the ear infection. Use albuterol inhaler 2 to 3 puffs 4 times daily regularly for the next several days to week for breathing and decreasing coughing. Decadron steroid daily for the next week to help with bronchial and sinus inflammation. Cetirizine antihistamine twice daily for the next 7 to 10 days. Off work today and tomorrow. I sent your prescriptions to your usual pharmacy. Recheck if not improving well over the next several days and resolved by 4 to 5 days. Return if worse. Forms: PCP List, Activity restrictions Discharge Date/Time: 03/13/23 16:47
[2023-03-13] MEDS ORDERED: AMOXICILLIN 250 MG CAPSULE PO STA (16:15)
[2023-03-13] MEDS ORDERED: dexAMETHasone 4 MG TABLET PO STA (16:15)
[2023-03-13] MEDS ORDERED: ACETAMINOPHEN 325 MG TABLET PO STA (16:15)
[2023-03-13 16:48] VITALS: BP 120/86; O2SAT 99
== END 2023-03-13 16:47 | disposition home or self-care (01) ==
LOC: ED 15:57
DX: R05.3 Chronic cough (principal); H66.001 Acute suppurative otitis media without spontaneous rupture of ear drum, right ear; J45.21 Mild intermittent asthma with (acute) exacerbation
CPT/HCPCS: 99283; 99284; A9270; J8540

== ENCOUNTER 2023-03-14 08:31 | Emergency (ER) | payer MEDICAID ==
[2023-03-14] MEDS ORDERED: KETOROLAC 30 MG/ML VIAL IM STA (08:45)
--- NOTE | 2023-03-14 08:49 | ED Physician Documentation ---
PD HPI UPPER EXT INJURY - Stated complaint Stated Complaint: LFT HAND DOG BITE - History obtained from History obtained from: Patient - History of Present Illness Location: Left, Hand Type of injury: Other (dog bite) Where injury occurred: Street Timing - onset: Today Timing - duration: Minutes Timing - details: Abrupt onset, Still present Improved by: Rest, Immobilization Worsened by: Moving, Palpating Associated symptoms: Other (no skin break). No: Weakness, Numbness, Tingling, Swelling, Discolored Similar symptoms before: Has not had sx before Recently seen: Emergency Dept (seen last night for OM with cough) - Additonal information Additional information: 32-year-old Nanda Cid was out walking her roommates dog when the dog finished its business it turned and attacked her biting her hand. She did not have any break in the skin she has extreme burning pain from the thenar eminence and is having pain with any movement of her hand or wrist. 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 HEENT: Other Psych: Depression, Anxiety Musculoskeletal: None Derm: Eczema, Psoriasis - Past Surgical History Past Surgical History: Yes HEENT: Myringotomy (tubes) - Present Medications Home Medications: Ambulatory Orders Medication Instructions Recorded Confirmed Levonorgestrel [Mirena] 1 each IY UD 12/05/17 03/14/23 Escitalopram [Lexapro] 20 mg PO DAILY 06/17/21 03/14/23 Alprazolam [Xanax] 1 mg PO Q8HR PRN 10/27/22 03/14/23 Azithromycin [Zithromax] 500 mg PO DAILY 3 Days #6 tablet 10/27/22 03/14/23 Dicyclomine HCl 10 mg PO TID PRN #20 cap 12/24/22 03/14/23 oxyCODONE [Roxicodone] 5 - 10 mg PO Q6H PRN #14 tablet 12/24/22 03/14/23 Albuterol Sulf [Ventolin Hfa 2 - 3 puffs INH Q4HR PRN #1 each 03/13/23 03/14/23 Inhaler] Amoxicillin 500 mg PO TID #21 cap 03/13/23 03/14/23 Cetirizine [ZyrTEC] 10 mg PO BID #20 tablet 03/13/23 03/14/23 dexAMETHasone [Decadron] 4 mg PO DAILY #7 tablet 03/13/23 03/14/23 - Allergies Allergies/Adverse Reactions: Allergies Allergy/AdvReac Type Severity Reaction Status Date / Time No Known Drug Allergies Allergy Verified 10/27/22 16:13 - Social History Does the pt smoke?: No Smoking Status: Never smoker Does the pt drink ETOH?: No Does the pt have substance abuse?: No - Immunizations Immunizations are current?: No Immunizations: TDAP >10years/unknown - POLST Patient has POLST: No PD ED PE NORMAL - Vitals Vital signs reviewed: Yes - General General: Alert and oriented X 3, Well developed/nourished, Other (appears shaken and in pain ) - HEENT HEENT: Atraumatic, PERRL, EOMI - Respiratory Respiratory: No respiratory distress - Derm Derm: Normal color, Warm and dry, No rash - Extremities Extremities: No deformity, No edema, Other (pain over the thenar emminance of the left hand without break in skin ) - Neuro Neuro: Alert and oriented X 3, building principal 2-12 intact, No motor deficit, No sensory deficit, Normal speech Eye Opening: Spontaneous Motor: Obeys Commands Verbal: Oriented GCS Score: 15 - Psych Psych: Normal mood, Normal affect Results - Vitals Vitals: Vital Signs - 24 hr 03/14/23 08:44 Temperature 37.2 C Heart Rate 107 H Respiratory 18 Rate Blood Pressure 143/64 H O2 Saturation 99 Oxygen O2 Source Room air - Rads (name of study) hand L Relevant Findings:: Prelim report reviewed (Imression: no acute bony abnormality. No radiographic foreign bodies.), EMP independent interpretation of test PD Medical Decision Making - ED course Complexity details: reviewed results, re-evaluated patient, considered differential, d/w patient ED course: 32-year-old female with a dog bite to the left hand that did not break the skin has pain over the hyperthenar eminence and pain with movement of her hand. She is placed with an ulnar gutter splint for comfort. She is given Toradol here for pain control. Departure - Departure Disposition: 01 Home, Self Care Clinical Impression: Contusion of left hand Qualifiers: Encounter type: initial encounter Qualified Code(s): S60.222A - Contusion of left hand, initial encounter Condition: Stable Instructions: ED Sprain Hand Follow-Up: Mike Bernal MD [Provider Admit Priv/Credential] - Comments: Nanda, today there is no fracture to your hand but a bruise to the muscles in the hand and this is likely to be tender for about 4 or 5 days. We have placed you into a thumb spica splint which should aid in pain control. I will leave you a note for work for limited use of your hand for a week. Forms: Activity restrictions Discharge Date/Time: 03/14/23 10:08
[2023-03-14 08:52] VITALS: BP 143/64; O2SAT 99
--- NOTE | 2023-03-14 09:17 | XRAY Report ---
PROCEDURE: Hand 3 View LT INDICATIONS: dog bite thenar pain TECHNIQUE: 3 views of the hand(s) acquired. COMPARISON: None. FINDINGS: Bones: No fractures or dislocations. No suspicious bony lesions. Soft tissues: No suspicious soft tissue calcifications or masses. IMPRESSION: No acute bony abnormality. No radiopaque foreign bodies. Reviewed by: Chino Vargas MD on 03/14/2023 9:15 AM [facility] Approved by: Chino Vargas MD on 03/14/2023 9:15 AM [facility] Station ID: [id number]
== END 2023-03-14 10:08 | disposition home or self-care (01) ==
LOC: ED 08:31
DX: S60.222A Contusion of left hand, initial encounter (principal); W54.0XXA Bitten by dog, initial encounter; Y93.K1 Activity, walking an animal
CPT/HCPCS: 96372; 99283